=== PATIENT | female | born 1950 | race Caucasian/White ===

== ENCOUNTER → 2017-06-19 12:49 | Outpatient (CLI) | payer MEDICARE, SELFPAY ==
[2017-06-19 14:00] LABS: Absolute Lymphocyte Count 0.84 X10^3/ul (0.83-4.51); Absolute Neutrophil Count 3.8 X10^3/uL (2.0-7.7); Basophil# 0.03 X10^3/uL; Basophil% 0.5 % (0-1); Eosinophils% 1.8 % (0-5); Hemoglobin 11.1 g/dl (12.0-15.0); Lymphocyte # 0.84 X10^3/ul (4.0); Lymphocyte % 14.9 % (19-41); Mean Corp Hgb Conc 31.7 g/gl (32-36); Mean Corpuscular Volume 97.8 fL (81-99); Mean Platelet Vol. 10.7 fl (6.2-12.0); Monocyte# 0.88 X10^3/uL; Monocyte% 15.6 % (0-10); Neutrophil # 3.77 X10^3/uL (2.7-7.7); Platelet Count 150 K/mm3 (150-450); RBC Distribution Width CV 14.6 % (11.6-14.6); RBC Distribution Width SD 49.6 fl (35.1-43.9); Red Blood Count 3.58 M/mm3 (4.2-5.4); White Blood Count 5.6 K/mm3 (4.4-11.0)
[2017-06-19 14:02] LABS: POSITIVE COUNT NO; POSITIVE DIFFERENTIAL NO; POSITIVE MORPHOLOGY NO
[2017-06-19 14:17] LABS: Hemoglobin A1c 5.4 % (4.2-6.3)
== END ==
PROVIDERS: Family Provider Family Medicine; PCP Family Medicine; Visit Provider Physician Assistant
DX: M17.11 Unilateral primary osteoarthritis, right knee (principal); E11.9 Type 2 diabetes mellitus without complications
CPT/HCPCS: 36415; 83036; 85025

== ENCOUNTER 2017-07-25 05:15 | Inpatient (IN) | payer MEDICARE, SELFPAY ==
--- NOTE | 2017-07-10 11:10 | PCM.HP.BLA ---
History and Physical DATE OF SERVICE: 07/25/2017 SCHEDULED PROCEDURE: Right total knee arthroplasty with left knee cortisone injection HISTORY OF PRESENT ILLNESS: This is a 67-year-old female who is been having ongoing pain in bilateral knee is for the past 2 years. Patient states the right knee is worse than the left. Pain can reach as high as an 8 out of 10. Her pain is constant, aching, sharp, and stabbing. Pain is increased going up and down stairs, walking any amount of distance, sitting for extended periods of time, and driving. Rest is temporarily helpful. Patient has difficult time with activities of daily living including housework, shopping, and leisure activities. Patient denies previous surgery on the right knee. She has had previous cortisone injection with only 1-2 days of relief. She has tried ice heat and home exercises with no relief in symptoms. She has tried oral medications consisting of Celebrex which temporarily helps as well as occasional tramadol. Patient has also tried a brace in the past with no significant relief in symptoms. After failing conservative measures and discussing all treatment options with Dr. Lock, the patient would like to proceed with a right total knee arthroplasty with a corticosteroid injection into the left knee. Patient does have a medical history pertinent for hypertension, type 2 diabetes mellitus, asthma, acid reflex, and previous blood clot in the right lower extremity in 1998. Patient currently denies any chest pain, shortness of breath, fevers chills, recent infections. We are obtaining surgical clearance from patient's primary care physician Dr. Quinones. REVIEW OF SYSTEMS: ROS: Const: Reports change in appetite, but denies anorexia, anxiety, fever and weight change,hard of hearing, and vision problems. CV: Denies chest pain, heart murmur, irregular heartbeat and peripheral vascular disease. Resp: Reports asthma and cough, but denies pneumonia, sleep apnea, shortness of breath, tuberculosis and wheezing. GI: Reports diarrhea, but denies constipation, heartburn, nausea, bloody stools and vomiting, and difficulty swallowing. : . (F Genital Sx) Denies incontinence. Musculo: Denies leg swelling, trouble walking and weakness and limp. Skin: Reports history of shingles and tattoo, but denies Raynaud's. Neuro: Reports numbness/tingling but denies ambulatory dysfunction, dizziness and tremor. Psych: Reports stress, but denies anxiety, depression, insomnia and mental illness. Tee/Lymph: Denies anemia, bleeding/bruising tendency and past transfusion. Reviewed and updated. PAST MEDICAL HISTORY: Advance Care Plan: No Advance Directives Effective Date: 06/01/2017 PMH: Medical Problems: Arthritis, High Blood Pressure, Ulcers, Diabetes, Hypercholesterolemia, Macular Degeneration, Asthma, Allergies, Emphysema, Acid Reflux, Hernia, Cancer, Hard Of Hearing Blood clot in lower extremity - 1998 Accidents: None Surgical Hx: Carpal Tunnel - (07/17/2007) RT CTR, [facility] Carpal Tunnel - (08/21/2007) LT [facility] Hysterectomy - (2010) Anesthesia Complications: None Assistive Devices: Glasses, Dentures, Hearing Aid Reviewed and updated. SOCIAL HISTORY: SH: Marital: .Occupation: Retired.Work Status: Retired.Hand Dominance: Left-handed. Personal Habits: Cigarette Use: Former.Alcohol: Occasionally.Drug Use: Denies Use.Enjoy Exercising: Exercises 1-3 X/Week. Reviewed and updated. VITALS: Ht: 60 Wt: 211lb Wt k.710 BMI: 41.2 BP: 132/90 Pulse: 68 Resp: 16 T: 97.6 T: 36.4C ALLERGIES: No Known Drug Allergy MEDICATIONS: Celebrex 200 mg 1 by mouth every day, Verapamil Sustained Release 240 mg 1 po qdAY, Potassium Chloride 20 meq/packet 1 po qdAY, Metformin 1000 mg 1 po qdAY, Flonase 50 mcg/[place] 2 po qdAY PRN, Tramadol 50 mg prn, Calcium W/Vit D 1 po BID, Multivitamins 1 po qdAY, Ocuvite 1 PO bid, Iron 27 mg 1 po qdAY, Vitamin E 400 units 1 po qdAY, Vitamin C 500mg 1 po qdAY, Atenolol 50 mg 1 PO qdAY, Atorvastatin Calcium 40 mg 1 by mouth every day, Losartan Potassium/Hydrochlorothiazide 100-25 mg 1 by mouth every day, Ventolin HFA 108 (90 Base) mcg/Act prn, Symbicort 160-4.5 mcg/Act 2 by mouth twice a day PRN, Montelukast Sodium 10 mg 1 by mouth every day, Docusate Sodium 100 mg 1 by mouth twice a day as needed, Glucosamine Chondroitin 1500 Complex 1500 Com 1po qday, Fish Oil 1000 mg 1 a day, Apple Cider Vinegar 500 mg 2po qday, Omeprazole 20 mg 1po bid PRE-OP EXAM: General appearance:NORMAL Other: Eyes: Conjunctivae and lids: NORMAL Pupils: ERR Ears, Nose, Mouth, and Throat: NORMAL Other: Inspection of lips, teeth and gums: NORMAL Other: Neck: Examination of neck: no masses noted. Respiratory: Assessment of respiratory effort: NORMAL Other: Ausculation of lungs: clear to ausculation no wheeses, ronchi or rales. Cardiovascular: Ausculation of heart: regular rate and rhythem, no mummurs, gallops or rubs. Exam of carotid arteries: NORMAL Other: Gastrointestinal: Exam of abdomen: soft, nontender, nondistended bowel sounds present. Lymphatic: Palpation of nodes in neck: NORMAL Other: Palpation of nodes in Axillae: NORMAL Other: Neurological: see below Psychiatric: Orientation to time, place and person: NORMAL Other: Mood and affect: NORMAL Other: PHYSICAL EXAMINATION: Patient does walk with an antalgic gait. Patient has a varus deformity of the right knee and left knee. Patient is tender to palpation on the right knee over the medial lateral joint line. Range of motion on the right knee is +5? of extension to 95? of flexion. Left knee is +3? of extension to 110? of flexion. Patient does get positive crepitus bilaterally. Sensations intact light touch. IMAGING STUDIES: X-rays were obtained at [facility] [place] on June 01, 2017 of bilateral knees which does reveal varus alignment and medial joint space narrowing, subchondral sclerosis, and osteophyte formation consistent with severe osteoarthritis. Patient's right knee is most severe in the patellofemoral compartment and most severe in the medial compartment on the left knee. IMPRESSION: 1. Severe right knee osteoarthritis with varus alignment 2. Severe left knee osteoarthritis with varus alignment 3. Hypertension 4. Type 2 diabetes mellitus 5. Hypercholesterolemia 6. Asthma 7. Acid reflux 8. History of ulcers 9. Emphysema 10. Macular degeneration 11. History of endometrial cancer 12. History of previous blood clot in 1998 right lower extremity PLAN: Dr. Lock did discuss and review with the patient all treatment options including surgical versus nonsurgical. Patient wishes to proceed with above-stated procedure. Potential risks, benefits, and complications of this procedure were discussed in detail including but not limited to , infection, nerve and blood vessel damage, persistent pain, numbness, tingling, paresthesias, blood clot, pulmonary embolism, and requirement for further surgery. The patient expressed full understanding has no further questions for the doctor. Patient does agree to proceed with the above-stated procedure and has signed the surgery consent form. ___ I have re-examined the patient. There are no clinical changes since date of exam. ___ See progress notes for changes. ___ Dictated on admission Date: Time: Signature:
--- NOTE | 2017-07-10 11:19 | HP.PCM_ITS ---
History and Physical DATE OF SERVICE: 07/25/2017 SCHEDULED PROCEDURE: Right total knee arthroplasty with left knee cortisone injection HISTORY OF PRESENT ILLNESS: This is a 67-year-old female who is been having ongoing pain in bilateral knee is for the past 2 years. Patient states the right knee is worse than the left. Pain can reach as high as an 8 out of 10. Her pain is constant, aching, sharp , and stabbing. Pain is increased going up and down stairs, walking any amount of distance, sitting for extended periods of time, and driving. Rest is temporarily helpful. Patient has difficult time with activities of daily living including housework, shopping, and leisure activities. Patient denies previous surgery on the right knee. She has had previous cortisone injection with only 1-2 days of relief. She has tried ice heat and home exercises with no relief in symptoms. She has tried oral medications consisting of Celebrex which temporarily helps as well as occasional tramadol. Patient has also tried a brace in the past with no significant relief in symptoms. After failing conservative measures and discussing all treatment options with Dr. Lock, the patient would like to proceed with a right total knee arthroplasty with a corticosteroid injection into the left knee. Patient does have a medical history pertinent for hypertension, type 2 diabetes mellitus, asthma, acid reflex, and previous blood clot in the right lower extremity in 1998. Patient currently denies any chest pain, shortness of breath, fevers chills, recent infections. We are obtaining surgical clearance from patient's primary care physician Dr. Quinones. REVIEW OF SYSTEMS: ROS: Const: Reports change in appetite, but denies anorexia, anxiety, fever and weight change,hard of hearing, and vision problems. CV: Denies chest pain, heart murmur, irregular heartbeat and peripheral vascular disease. Resp: Reports asthma and cough, but denies pneumonia, sleep apnea, shortness of breath, tuberculosis and wheezing. GI: Reports diarrhea, but denies constipation, heartburn, nausea, bloody stools and vomiting, and difficulty swallowing. : . (F Genital Sx) Denies incontinence. Musculo: Denies leg swelling, trouble walking and weakness and limp. Skin: Reports history of shingles and tattoo, but denies Raynaud's. Neuro: Reports numbness/tingling but denies ambulatory dysfunction, dizziness and tremor. Psych: Reports stress, but denies anxiety, depression, insomnia and mental illness. Tee/Lymph: Denies anemia, bleeding/bruising tendency and past transfusion. Reviewed and updated. PAST MEDICAL HISTORY: Advance Care Plan: No Advance Directives Effective Date: 06/01/2017 PMH: Medical Problems: Arthritis, High Blood Pressure, Ulcers, Diabetes, Hypercholesterolemia, Macular Degeneration, Asthma, Allergies, Emphysema, Acid Reflux, Hernia, Cancer, Hard Of Hearing Blood clot in lower extremity - 1998 Accidents: None Surgical Hx: Carpal Tunnel - (07/17/2007) RT CTR, [facility] Carpal Tunnel - (08/21/2007) LT CTR [facility] Hysterectomy - (2010) Anesthesia Complications: None Assistive Devices: Glasses, Dentures, Hearing Aid Reviewed and updated. SOCIAL HISTORY: SH: Marital: .Occupation: Retired.Work Status: Retired.Hand Dominance: Left- handed. Personal Habits: Cigarette Use: Former.Alcohol: Occasionally.Drug Use: Denies Use.Enjoy Exercising: Exercises 1-3 X/Week. Reviewed and updated. VITALS: Ht: 60 Wt: 211lb Wt k.710 BMI: 41.2 BP: 132/90 Pulse: 68 Resp: 16 T: 97.6 T: 36.4C ALLERGIES: No Known Drug Allergy MEDICATIONS: Celebrex 200 mg 1 by mouth every day, Verapamil Sustained Release 240 mg 1 po qdAY, Potassium Chloride 20 meq/packet 1 po qdAY, Metformin 1000 mg 1 po qdAY, Flonase 50 mcg/[place] 2 po qdAY PRN, Tramadol 50 mg prn, Calcium W/Vit D 1 po BID, Multivitamins 1 po qdAY, Ocuvite 1 PO bid, Iron 27 mg 1 po qdAY, Vitamin E 400 units 1 po qdAY, Vitamin C 500mg 1 po qdAY, Atenolol 50 mg 1 PO qdAY, Atorvastatin Calcium 40 mg 1 by mouth every day, Losartan Potassium/ Hydrochlorothiazide 100-25 mg 1 by mouth every day, Ventolin HFA 108 (90 Base) mcg/Act prn, Symbicort 160-4.5 mcg/Act 2 by mouth twice a day PRN, Montelukast Sodium 10 mg 1 by mouth every day, Docusate Sodium 100 mg 1 by mouth twice a day as needed, Glucosamine Chondroitin 1500 Complex 1500 Com 1po qday, Fish Oil 1000 mg 1 a day, Apple Cider Vinegar 500 mg 2po qday, Omeprazole 20 mg 1po bid PRE-OP EXAM: General appearance:NORMAL Other: Eyes: Conjunctivae and lids: NORMAL Pupils: ERR Ears, Nose, Mouth, and Throat: NORMAL Other: Inspection of lips, teeth and gums: NORMAL Other: Neck: Examination of neck: no masses noted. Respiratory: Assessment of respiratory effort: NORMAL Other: Ausculation of lungs: clear to ausculation no wheeses, ronchi or rales. Cardiovascular: Ausculation of heart: regular rate and rhythem, no mummurs, gallops or rubs. Exam of carotid arteries: NORMAL Other: Gastrointestinal: Exam of abdomen: soft, nontender, nondistended bowel sounds present. Lymphatic: Palpation of nodes in neck: NORMAL Other: Palpation of nodes in Axillae: NORMAL Other: Neurological: see below Psychiatric: Orientation to time, place and person: NORMAL Other: Mood and affect: NORMAL Other: PHYSICAL EXAMINATION: Patient does walk with an antalgic gait. Patient has a varus deformity of the right knee and left knee. Patient is tender to palpation on the right knee over the medial lateral joint line. Range of motion on the right knee is +5? of extension to 95? of flexion. Left knee is +3? of extension to 110? of flexion. Patient does get positive crepitus bilaterally. Sensations intact light touch. IMAGING STUDIES: X-rays were obtained at [facility] [place] on June 01, 2017 of bilateral knees which does reveal varus alignment and medial joint space narrowing, subchondral sclerosis, and osteophyte formation consistent with severe osteoarthritis. Patient's right knee is most severe in the patellofemoral compartment and most severe in the medial compartment on the left knee. IMPRESSION: 1. Severe right knee osteoarthritis with varus alignment 2. Severe left knee osteoarthritis with varus alignment 3. Hypertension 4. Type 2 diabetes mellitus 5. Hypercholesterolemia 6. Asthma 7. Acid reflux 8. History of ulcers 9. Emphysema 10. Macular degeneration 11. History of endometrial cancer 12. History of previous blood clot in 1998 right lower extremity PLAN: Dr. Lock did discuss and review with the patient all treatment options including surgical versus nonsurgical. Patient wishes to proceed with above- stated procedure. Potential risks, benefits, and complications of this procedure were discussed in detail including but not limited to , infection , nerve and blood vessel damage, persistent pain, numbness, tingling, paresthesias, blood clot, pulmonary embolism, and requirement for further surgery. The patient expressed full understanding has no further questions for the doctor. Patient does agree to proceed with the above-stated procedure and has signed the surgery consent form. ___ I have re-examined the patient. There are no clinical changes since date of exam. ___ See progress notes for changes. ___ Dictated on admission Date: Time: Signature:
[2017-07-10 13:16] VITALS: BP 121/68; PULSE 65; RESP 16; TEMP 36.7; O2SAT 95; BMI 41.2
--- NOTE | 2017-07-10 13:38 | SDCEKG_ITS ---
Test Reason : Blood Pressure : / mmHG Vent. Rate : 061 BPM Atrial Rate : 061 BPM P-R Int : 174 ms QRS Dur : 136 ms QT Int : 456 ms P-R-T Axes : 047 077 024 degrees QTc Int : 459 ms Normal sinus rhythm Right bundle branch block Abnormal ECG Confirmed by CHINO ZURITA, ARNALDO ([id number]), department editor CATE ADHIKARI ([id number] on 07/12/2017 2:33:31 PM Referred By: BERNADETTE WID Confirmed By:ARNALDO MAGANA MD
[2017-07-10 14:44] LABS: Anion Gap 5 (5-15); BUN 28 mg/dL (7-18); BUN/Creat Ratio 24.1 RATIO (10-20); Calcium,Total 8.8 mg/dL (8.5-10.1); Chloride 108 mmol/L (98-107); Creatinine, Serum 1.16 mg/dL (0.55-1.02); EST Glomerular Filtration Rate 50 mL/min (>60); Est Glom Filt Rate - Afr Amer 60 mL/min (>60); Glucose 110 mg/dL (74-106); Potassium 3.9 mmol/L (3.5-5.1); Sodium Level 142 mmol/L (136-145)
--- NOTE | 2017-07-20 15:17 | CASEMGMT ---
ELLEN WYNNE called and spoke with patient regarding discharge needs after upcoming surgery. Patient states that she will be staying with her sister's house and is borrowing her bother in laws walker. ELLEN WYNNE requested that patient bring walker with her when she comes to surgery. Patient state that her sister has toilet riser and shower chair at their house. Patient states that she is setup with [facility] for outpatient therapy and that her sister or other family and friends will be providing transportation. ELLEN WYNNE will follow up with patient after surgery and will assist with discharge needs.
[2017-07-25] VITALS (13 sets, daily range): BP systolic 115–163; BP diastolic 50–87; PULSE 48–75; RESP 15–18; TEMP 36–37.1; O2SAT 92–99; BMI 41.2
[2017-07-25] MEDS: Celecoxib 200 MG Capsule 400 MG PO (06:03)
[2017-07-25] MEDS: oxyCODONE HCl Cr 10 MG Tablet PO (06:03)
[2017-07-25] MEDS: Acetaminophen 500 MG Tablet 1000 MG PO ×3 (06:03→21:40)
[2017-07-25 06:16] LABS: Bedside Glucose 104 mg/dL (70-110)
[2017-07-25] MEDS: Scopolamine 1mg/72hr Patch 1 PATCH TD (07:00)
[2017-07-25] MEDS: Cefazolin 2 GM in 0.9% Normal Saline 100 ML IV (07:09)
[2017-07-25] MEDS: Triamcinolone Acetonide 40 MG/ML Vial (07:17)
[2017-07-25] MEDS: Lactated Ringers 1,000 ML 999 ML IV (08:55)
--- NOTE | 2017-07-25 08:56 | PCM.OPRPT ---
Report of Operation Date of Procedure: 07/25/17 Pre-Operative Diagnosis: 1. Right knee primary osteoarthritis. 2. Left knee primary osteoarthritis Post-Operative Diagnosis: 1. Right knee primary osteoarthritis. 2. Left knee primary osteoarthritis Surgery/Procedure Performed:: 1. Right total knee replacement. 2. Left knee cortical steroid injection Description of Surgical Findings:: stAble knee with equal leg lengths, left knee was injected with a roll suprapatellar pouch portal teacher drama: Mauro Campbell Type of Anesthesia:: Spinal Anesthesiologist: Jason Pierre Special Medications: 2 g Ancef, 1 g TXA at incision, 1 g TXA closure, 10 mg Decadron, joint cocktail (5 mg Duramorph, 30 mL of 0.5% Ropivicaine, 1000 units of epinephrine, 30 mg of Toradol) Specimen's removed: Bony cuts Estimated Blood Loss (mL): 25 Fluids Replaced: 1400 ml Crystalloid Description of Procedure: Implants used: 1. Toño size 3 triathlon cruciate retaining distal femoral component 2. Girard size 3 universal tibial baseplate 3. Girard X3 9 mm CS polyethylene 4. Girard X3 29 mm asymmetric patella Brief history operative indications: 67-year-old f with history of right knee osteoarthritis with radiographic findings with loss of joint space, osteophyte formation and subchondral sclerosis. Failed conservative measures as mentioned in the H&P. Discussion of total knee arthroplasty as well as risk and benefits were discussed the patient including but not limited to blood loss, DVTs, PEs, neurovascular damage, general risk of anesthesia including loss of life, and stiffness or instability were discussed with patient. Patient demonstrated understanding and was able to sign informed consent. Procedure: On the date of procedure patient's right and left lower extremity was marked in the preoperative area. The patient was then taken back to the operating room where the patient was placed on the table in the supine position. All bony prominences were identified a well-padded. Anesthesia assumed control of the C-spine and airway and remained controlled throughout the remainder of the procedure. Timeout was called for the left knee injection and left knee was verified. Left knee suprapatellar lateral portal was prepped in a sterile fashion using alcohol. 2 mL of Kenalog and 8 mL of 1% lidocaine were drawn up into a syringe. Medication was injected through this portal and sterile conditions. A tourniquet was placed on the right upper thigh and the leg was prepped in a sterile fashion. The surgeon then scrubbed at this time. Upon reentering the room the right lower extremity was draped in a standard orthopedic fashion. A timeout was then called and everyone agreed upon the side, the site, the procedure to be performed, patient's identity and antibiotics given. Esmarch bandage was used to exsanguinate the extremity and the tourniquet was placed up to 250 mmHg with the knee in flexion. A midline skin incision was made and sharp dissection was taken down through skin subcutaneous tissue and fat. The standard medial parapatellar incision was made and the patella was subluxed laterally. The standard deep MCL release was done and the fat pad was resected. Next our attention was directed to the femur. Navigation pins were placed, navigation was registered. The distal femoral cutting block was pinned into place and 8 mm of distal femur resection was completed. The distal femoral cut was verified with navigation. The knee was then placed in deep flexion in the standard Bills Khakis sizing guide was used to place the femoral component in 3? external rotation based on the posterior condyles. A size 3 4-in-1 cutting block was selected and pinned into place. The anterior cut was then made and checked for notching. The subsequent anterior chamfer cuts, posterior condylar cuts and posterior chamfer cuts were made while ensuring the MCL and LCL were protected. Our attention was then turned to the tibia where the navigation pins were placed, navigation was registered. Mirimus tibial cutting guide was used to make the appropriate tibial cut 90 degrees from the mechanical axis. Navigation was then used to verify the cut. A size 3 tibial base plate was selected. the knee was flexed to 90 degrees and the soft tissues and posterior osteophytes were removed from the joint. 40 cc of the periarticular injection was injected into the posterior medial corner of the joint. The appropriate trials were then placed on the femur and tibia. A trial polyethylene was trialed to ensure proper balancing and stability of the knee. Patella tracking, was then verified and corrected appropriately as needed. The appropriate tibial internal rotation was then marked with a bovie. Our attention was then directed to the patella. The patella was everted and a flat resection was made. The lug holes were drilled and the patella trial was placed. Patellar tracking was checked and deemed appropriate. Once we were happy lug holes were drilled for the femur and trial components were removed. the tibia was subluxed and pinned into place and the keel was punched and the canal was reamed. Final components were verified and opened, and cement was mixed in a vacuum. Toño Simplex cement was used. The wound was copiously irrigated with normal saline. When the cement was ready the components were cemented into place starting with the tibia, femur and finally the patella. The trial poly component was placed and the knee was placed in full extension. All excess cement was removed in the process. Once the cement had cured the tracking, alignment and balance were verified and a size 9 mm polyethylene component was placed. Once the final components were placed the wound was copiously irrigated with normal saline solution and the periarticular injection was given. The wound was closed in a layer rinaldi fashion using #1 vicryl interrupted sutures for the arthrotomy, 2-0 interrupted Vicryl suture for the subcuticular layer and daryl for final skin closure. A sterile compressive dressing was then placed. The patient was then awakened from anesthesia, transferred to the [place] and transferred to the PACU for recovery. Post op plan DVT ppx: Xarelto due to previous DVT, thigh high compression stockings Follow up: in office in 2 weeks for wound check PT: to start POD #0 at hospital, outpatient PT should be arranged. My physician certified first assistant was a vital part of this case. He was important in appropriate retraction during the case, and protection of soft tissues during bony cuts. His intimate knowledge of the case and my steps aided in safe and expedient completion of the procedure as well as appropriate position of the leg during the case. He was also vital in assisting with closure under my direct supervision. Grafts/Implants Used: Toño triathlon total knee - Complications None - Admit VTE Documentation VTE Present on Admission: No VTE Mechan Device Prophylaxis: SCD's, Thigh High NEMO Hose VTE Pharm Prophylaxis ordered?: Yes
--- NOTE | 2017-07-25 09:01 | OP.PCM_ITS ---
Report of Operation Date of Procedure: 07/25/17 Pre-Operative Diagnosis: 1. Right knee primary osteoarthritis. 2. Left knee primary osteoarthritis Post-Operative Diagnosis: 1. Right knee primary osteoarthritis. 2. Left knee primary osteoarthritis Surgery/Procedure Performed:: 1. Right total knee replacement. 2. Left knee cortical steroid injection Description of Surgical Findings:: stAble knee with equal leg lengths, left knee was injected with a roll suprapatellar pouch portal director wholesale: Mauro Campbell Type of Anesthesia:: Spinal Anesthesiologist: Jason Pierre Special Medications: 2 g Ancef, 1 g TXA at incision, 1 g TXA closure, 10 mg Decadron, joint cocktail (5 mg Duramorph, 30 mL of 0.5% Ropivicaine, 1000 units of epinephrine, 30 mg of Toradol) Specimen's removed: Bony cuts Estimated Blood Loss (mL): 25 Fluids Replaced: 1400 ml Crystalloid Description of Procedure: Implants used: 1. Toño size 3 triathlon cruciate retaining distal femoral component 2. [place] size 3 universal tibial baseplate 3. [place] X3 9 mm CS polyethylene 4. [place] X3 29 mm asymmetric patella Brief history operative indications: 67-year-old f with history of right knee osteoarthritis with radiographic findings with loss of joint space, osteophyte formation and subchondral sclerosis. Failed conservative measures as mentioned in the H&P. Discussion of total knee arthroplasty as well as risk and benefits were discussed the patient including but not limited to blood loss, DVTs, PEs, neurovascular damage , general risk of anesthesia including loss of life, and stiffness or instability were discussed with patient. Patient demonstrated understanding and was able to sign informed consent. Procedure: On the date of procedure patient's right and left lower extremity was marked in the preoperative area. The patient was then taken back to the operating room where the patient was placed on the table in the supine position. All bony prominences were identified a well-padded. Anesthesia assumed control of the C- spine and airway and remained controlled throughout the remainder of the procedure. Timeout was called for the left knee injection and left knee was verified. Left knee suprapatellar lateral portal was prepped in a sterile fashion using alcohol. 2 mL of Kenalog and 8 mL of 1% lidocaine were drawn up into a syringe. Medication was injected through this portal and sterile conditions. A tourniquet was placed on the right upper thigh and the leg was prepped in a sterile fashion. The surgeon then scrubbed at this time. Upon reentering the room the right lower extremity was draped in a standard orthopedic fashion. A timeout was then called and everyone agreed upon the side , the site, the procedure to be performed, patient's identity and antibiotics given. Esmarch bandage was used to exsanguinate the extremity and the tourniquet was placed up to 250 mmHg with the knee in flexion. A midline skin incision was made and sharp dissection was taken down through skin subcutaneous tissue and fat. The standard medial parapatellar incision was made and the patella was subluxed laterally. The standard deep MCL release was done and the fat pad was resected. Next our attention was directed to the femur. Navigation pins were placed, navigation was registered. The distal femoral cutting block was pinned into place and 8 mm of distal femur resection was completed. The distal femoral cut was verified with navigation. The knee was then placed in deep flexion in the standard [employer] sizing guide was used to place the femoral component in 3? external rotation based on the posterior condyles. A size 3 4-in-1 cutting block was selected and pinned into place. The anterior cut was then made and checked for notching. The subsequent anterior chamfer cuts, posterior condylar cuts and posterior chamfer cuts were made while ensuring the MCL and LCL were protected. Our attention was then turned to the tibia where the navigation pins were placed , navigation was registered. [employer] (Astilbe) tibial cutting guide was used to make the appropriate tibial cut 90 degrees from the mechanical axis. Navigation was then used to verify the cut. A size 3 tibial base plate was selected. the knee was flexed to 90 degrees and the soft tissues and posterior osteophytes were removed from the joint. 40 cc of the periarticular injection was injected into the posterior medial corner of the joint. The appropriate trials were then placed on the femur and tibia. A trial polyethylene was trialed to ensure proper balancing and stability of the knee. Patella tracking, was then verified and corrected appropriately as needed. The appropriate tibial internal rotation was then marked with a bovie. Our attention was then directed to the patella. The patella was everted and a flat resection was made. The lug holes were drilled and the patella trial was placed. Patellar tracking was checked and deemed appropriate. Once we were happy lug holes were drilled for the femur and trial components were removed. the tibia was subluxed and pinned into place and the keel was punched and the canal was reamed. Final components were verified and opened, and cement was mixed in a vacuum. [place] Simplex cement was used. The wound was copiously irrigated with normal saline. When the cement was ready the components were cemented into place starting with the tibia, femur and finally the patella. The trial poly component was placed and the knee was placed in full extension. All excess cement was removed in the process. Once the cement had cured the tracking, alignment and balance were verified and a size 9 mm polyethylene component was placed. Once the final components were placed the wound was copiously irrigated with normal saline solution and the periarticular injection was given. The wound was closed in a layer rinaldi fashion using #1 vicryl interrupted sutures for the arthrotomy, 2-0 interrupted Vicryl suture for the subcuticular layer and daryl for final skin closure. A sterile compressive dressing was then placed. The patient was then awakened from anesthesia, transferred to the rfords branch and transferred to the PACU for recovery. Post op plan DVT ppx: Xarelto due to previous DVT, thigh high compression stockings Follow up: in office in 2 weeks for wound check PT: to start POD #0 at hospital, outpatient PT should be arranged. My physician seed analysis laboratory assistant was a vital part of this case. He was important in appropriate retraction during the case, and protection of soft tissues during bony cuts. His intimate knowledge of the case and my steps aided in safe and expedient completion of the procedure as well as appropriate position of the leg during the case. He was also vital in assisting with closure under my direct supervision. Grafts/Implants Used: Toño triathlon total knee - Complications None - Admit VTE Documentation VTE Present on Admission: No VTE Mechan Device Prophylaxis: SCD's, Thigh High NEMO Hose VTE Pharm Prophylaxis ordered?: Yes
--- NOTE | 2017-07-25 09:25 | RAD_ITS ---
STUDY: X-RAY - RIGHT KNEE REASON FOR EXAM: Female, 67 years old. Total knee replacement. TECHNIQUE: AP and lateral view(s) of the knee. COMPARISON: Comparison is made with prior examination dated July 14, 2014. FINDINGS: Normal visualized distal femur. Normal visualized proximal tibia and fibula. Normal proximal tibiofibular articulation. The patient is status post total knee replacement. There is good alignment. Postoperative soft tissue changes. RAD/Knee 1 or 2 Views IMPRESSION: Total knee replacement. There is good alignment. Postoperative soft tissue changes. Electronically Signed: Kostas Finney MD at 12:51 EDT Tel [phone], Service support ,
[2017-07-25] MEDS: Lactated Ringers 1,000 ML 125 ML IV ×2 (10:27→15:31)
[2017-07-25 10:30] LABS: Bedside Glucose 119 mg/dL (70-110)
[2017-07-25 12:40] LABS: Bedside Glucose 113 mg/dL (70-110)
[2017-07-25] MEDS: Senna/Docusate Sodium 1 Tablet 2 TABLET PO ×2 (13:44→21:40)
[2017-07-25] MEDS: Pantoprazole Sodium 20 MG Tablet PO ×2 (13:45→21:40)
[2017-07-25] MEDS: Albuterol 2.5 MG/3 ML VIAL.NEB. INHALATION ×2 (13:52→18:52)
[2017-07-25] MEDS: Cefazolin 1 GM/50 ML BAG IV ×2 (16:01→23:11)
[2017-07-25] MEDS: Calcium Carb/Vitamin D 1 TABLET Tablet PO (17:41)
[2017-07-25 17:46] LABS: Bedside Glucose 98 mg/dL (70-110)
[2017-07-25] MEDS: Budesonide Respules 0.5 MG/2 ML AMPUL.NEB. INHALATION (18:52)
--- NOTE | 2017-07-25 19:06 | PCM.CONS.B ---
Problem List (1) S/P total knee arthroplasty Status: Acute Qualifiers: Laterality: right Qualified Code(s): Z96.651 - Presence of right artificial knee joint Comment: Dr. 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 Lock Pt was seen and examined post operatively. She is afebrile and the BP is good. She is 96-98% saturated on RA. She is mildly bradycardic. She is on both Metoprolol and Verapimil. She was + for MSSA on the nasal swab and has received Ancef pre-op and this is continued post-op. She is on Eliquis 2.5 mg BID for DVT prophylaxis. she had a DVT in 1998 and it was unprovoked. She was on Coumadin for a year. Denies CP, SOB, palpitations, lightheadedness. No hx of AF, HI, CHF, sleep apnea. She has never had a stress test. FH is + for endometrial CA in her mother. She lives alone and she quit smoking many years ago. She has no children. She does not abuse ETOH. Alert and oriented X3, NAD. Denies any pain at the present time Carotids -brisk upstroke with good pulse volume, no carotid bruits, no jugular vein distention, no thyromegaly Mucous membranes are dry Lungs-diminished but clear to auscultation throughout after a few deep breaths. She initially had coarse crackles in the bases but this completely resolved with a few deep breaths. Heart-distant heart sounds, likely secondary to body habitus. No murmurs appreciated and she has no gallop and no rub. Abdomen-obese, soft, nontender, normal bowel sounds present Trace pretibial pitting edema bilaterally, intact sensation in both feet, no calf tenderness No clubbing, no cyanosis No focal neurologic deficits Skin-no rash no breakdown She plans on going to her sister's house to recover...she will have a few steps to go up Impressions 1. S/P R TKA 07/25/17 2. HTN 3. DM II - excellent control.....HGBA1C was 5.4% in June. Monitor the blood sugars QID while in the hospital and will add a Sliding scale 4. Dyslipidemia - lipid panel less than 1 year ago was good and the LDL was 67 5. morbid obesity 6. hx of stage I endometrial CA - S/P CAROL with BSO in 2010 7. Remote history of an unprovoked DVT - Agree with using Eliquis for DVT prophylaxis. I would recommend continuing the Eliquis for 4-6 weeks post op given the hx of the unprovoked DVT in 1998 and the Hx of endometrial CA. 8. Stage III CRF - would advise follow up with a personal property assessor going forward to help preserve the kidney function. Avoid Nephrotoxins. Would avoid NSAID's fdc as this can worsen kidney function. Continue the ARB 9. RBBB - would consider a Nuclear Stress test in the future. She has several risk factors for CAD including DM II, former smoking hx, HLD, HTN, Age > 55, obesity. She has a RBBB which can mask ischemic changes Will recheck BMP and CBC in the AM. Thank you for your trust in allowing the hospitalist service to participate in the medical management of your pt's with Chronic medical conditions. Will follow along while she is in the hospital. - Reason for Consult medical management of chronic medical conditions post-op R TKA Code Visit Inpatient E&M: 59322 Subs Hosp L3
--- NOTE | 2017-07-25 19:18 | CON.PCM_ITS ---
Problem List (1) S/P total knee arthroplasty Status: Acute Qualifiers: Laterality: right Qualified Code(s): Z96.651 - Presence of right artificial knee joint Comment: Dr. 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 Lock Pt was seen and examined post operatively. She is afebrile and the BP is good. She is 96-98% saturated on RA. She is mildly bradycardic. She is on both Metoprolol and Verapimil. She was + for MSSA on the nasal swab and has received Ancef pre-op and this is continued post-op. She is on Eliquis 2.5 mg BID for DVT prophylaxis. she had a DVT in 1998 and it was unprovoked. She was on Coumadin for a year. Denies CP, SOB, palpitations, lightheadedness. No hx of AF, AR, CHF, sleep apnea. She has never had a stress test. FH is + for endometrial CA in her mother. She lives alone and she quit smoking many years ago. She has no children. She does not abuse ETOH. Alert and oriented X3, NAD. Denies any pain at the present time Carotids -brisk upstroke with good pulse volume, no carotid bruits, no jugular vein distention, no thyromegaly Mucous membranes are dry Lungs-diminished but clear to auscultation throughout after a few deep breaths. She initially had coarse crackles in the bases but this completely resolved with a few deep breaths. Heart-distant heart sounds, likely secondary to body habitus. No murmurs appreciated and she has no gallop and no rub. Abdomen-obese, soft, nontender, normal bowel sounds present Trace pretibial pitting edema bilaterally, intact sensation in both feet, no calf tenderness No clubbing, no cyanosis No focal neurologic deficits Skin-no rash no breakdown She plans on going to her sister's house to recover...she will have a few steps to go up Impressions 1. S/P R TKA 07/25/17 2. HTN 3. DM II - excellent control.....HGBA1C was 5.4% in June. Monitor the blood sugars QID while in the hospital and will add a Sliding scale 4. Dyslipidemia - lipid panel less than 1 year ago was good and the LDL was 67 5. morbid obesity 6. hx of stage I endometrial CA - S/P CAROL with BSO in 2010 7. Remote history of an unprovoked DVT - Agree with using Eliquis for DVT prophylaxis. I would recommend continuing the Eliquis for 4-6 weeks post op given the hx of the unprovoked DVT in 1998 and the Hx of endometrial CA. 8. Stage III CRF - would advise follow up with a manager of operations going forward to help preserve the kidney function. Avoid Nephrotoxins. Would avoid NSAID's retirement as this can worsen kidney function. Continue the ARB 9. RBBB - would consider a Nuclear Stress test in the future. She has several risk factors for CAD including DM II, former smoking hx, HLD, HTN, Age > 55, obesity. She has a RBBB which can mask ischemic changes Will recheck BMP and CBC in the AM. Thank you for your trust in allowing the hospitalist service to participate in the medical management of your pt's with Chronic medical conditions. Will follow along while she is in the hospital. - Reason for Consult medical management of chronic medical conditions post-op R TKA Code Visit Inpatient E&M: 32974 Subs Hosp L3
[2017-07-25] MEDS: Verapamil SR 240 MG Tablet PO (21:38)
[2017-07-25] MEDS: Atorvastatin Calcium 40 MG Tablet PO (21:39)
[2017-07-25] MEDS: APIXABAN 2.5 MG TABLET PO (21:39)
[2017-07-25] MEDS: Montelukast 10 MG Tablet PO (21:40)
[2017-07-25 21:45] LABS: Bedside Glucose 134 mg/dL (70-110)
[2017-07-26] VITALS (9 sets, daily range): BP systolic 103–163; BP diastolic 46–60; PULSE 57–67; RESP 16–18; TEMP 36.7–37.2; O2SAT 95–98
--- NOTE | 2017-07-26 05:55 | EKG12_ITS ---
Test Reason : AM EKG Blood Pressure : / mmHG Vent. Rate : 060 BPM Atrial Rate : 060 BPM P-R Int : 180 ms QRS Dur : 126 ms QT Int : 446 ms P-R-T Axes : 033 068 021 degrees QTc Int : 446 ms Sinus rhythm with Premature supraventricular complexes Right bundle branch block Abnormal ECG When compared with ECG of 10-JUL-2017 13:50, Premature supraventricular complexes are now Present Confirmed by CHINO ZURITA, ARNALDO ([id number]), editor index CATE ADHIKARI ([id number]) on 08/04/2017 2:52:59 PM Referred By: Confirmed By:ARNALDO MAGANA MD
[2017-07-26] MEDS: Acetaminophen 500 MG Tablet 1000 MG PO ×3 (06:06→21:37)
[2017-07-26] MEDS: oxyCODONE 5 MG Tablet PO ×4 (06:09→18:32)
[2017-07-26 06:12] LABS: Hematocrit 32.7 % (37-47); Hemoglobin 10.2 g/dl (12.0-15.0); Mean Corp Hgb Conc 31.2 g/gl (32-36); Mean Corpuscular Hgb 30.4 pg (27.0-32.0); Mean Corpuscular Volume 97.6 fL (81-99); Mean Platelet Vol. 10.3 fl (6.2-12.0); Platelet Count 149 K/mm3 (150-450); RBC Distribution Width CV 14.5 % (11.6-14.6); RBC Distribution Width SD 48.8 fl (35.1-43.9); Red Blood Count 3.35 M/mm3 (4.2-5.4)
[2017-07-26 06:15] LABS: Scan Indicated on CBC? Y/N NO
[2017-07-26 06:21] LABS: Anion Gap 7 (5-15); BUN 18 mg/dL (7-18); BUN/Creat Ratio 18.7 RATIO (10-20); Calcium,Total 8.2 mg/dL (8.5-10.1); Chloride 109 mmol/L (98-107); Creatinine, Serum 0.96 mg/dL (0.55-1.02); EST Glomerular Filtration Rate 62 mL/min (>60); Est Glom Filt Rate - Afr Amer 74 mL/min (>60); Estimated Creatinine Clearance 40.85 ml/min; Glucose 97 mg/dL (74-106); Magnesium 1.9 mg/dL (1.6-2.6); Potassium 4.4 mmol/L (3.5-5.1); Sodium Level 144 mmol/L (136-145)
[2017-07-26 06:36] LABS: Bedside Glucose 104 mg/dL (70-110)
[2017-07-26] MEDS: Budesonide Respules 0.5 MG/2 ML AMPUL.NEB. INHALATION (06:52)
[2017-07-26] MEDS: Albuterol 2.5 MG/3 ML VIAL.NEB. INHALATION ×2 (06:52→19:30)
--- NOTE | 2017-07-26 07:00 | PN.ORTHO_ITS ---
Patient Problems: Active and Suspected Problems S/P total knee arthroplasty (Acute) Dr. Lock 07/25/17 Endometrial cancer (Acute) Subjective: The patient was sitting in bed side chair upon examination. Patient denies any chest pain, shortness of breath, dizziness, lightheadedness, nausea or vomiting , or calf pain. Patient states she did require pain medications this morning. She feels the block is wearing off. No adverse overnight events. Objective: Vital signs stable and afebrile. Patient is able to plantarflex and dorsiflex actively. Sensation is intact to light touch to saphenous, sural, superficial and deep peroneal, and tibial distribution. Dressing is clean dry and intact. Negative Homans bilaterally, negative signs and symptoms of DVT. - Physical Exam General: Alert, Oriented x3, Cooperative, No apparent distress Vital Signs Temp Pulse Resp BP Pulse Ox 98.5 F 57 L 18 103/53 L 96 07/26/17 03:25 07/26/17 03:25 07/26/17 03:25 07/26/17 03:25 07/26/17 03:25 Oxygen Delivery Method Room Air Weight: 95.708 kg Body Mass Index (BMI) 41.2 Finger Stick Blood Glucose 119 Intake and Output for Last 24 Hours 07/24/17 07/25/17 07/26/17 23:59 23:59 23:59 Intake Total 2810 / 2810 1764 / 1764 Output Total 900 / 900 Balance 1909 / 191 1764 / 1764 Laboratory Tests Past 24 Hrs 07/26/17 07/26/17 05:40 05:40 WBC 8.0 RBC 3.35 L Hgb 10.2 L Hct 32.7 L MCV 97.6 MCH 30.4 MCHC 31.2 L RDW 14.5 RDW Differential 48.8 H Plt Count 149 L MPV 10.3 Sodium 144 Potassium 4.4 Chloride 109 H Carbon Dioxide 28.0 Anion Gap 7 BUN 18 Creatinine 0.96 Estim Creat Clear Calc 40.85 Est GFR (MDRD) Af Amer 74 Est GFR (MDRD) Non-Af 62 BUN/Creatinine Ratio 18.7 Glucose 97 Calcium 8.2 L Magnesium 1.9 POC Glucose 07/26/17 07/25/17 07/25/17 06:33 21:38 17:37 POC Glucose 104 134 H 98 07/25/17 07/25/17 11:21 10:19 POC Glucose 113 H 119 H Assessment/Plan Active and Suspected Problems S/P total knee arthroplasty (Acute) Dr. Lock 07/25/17 Endometrial cancer (Acute) 1. S/P right total knee arthroplasty and corticosteroid injection left knee POD #1 2. Continue Pain Medications: Tylenol and OxyIR 3. DVT Prophylaxis: Eliquis 4. PT/OT: Weightbearing as tolerated 5. H & H: 10.2/32.7, asymptomatic 6. Encouraged Incentive Spirometry 7. Continue postoperative medical management per medicine 8. Disposition: Plan will be for possible discharge home tomorrow if pain is controlled and patient tolerates physical therapy.
[2017-07-26] MEDS: Calcium Carb/Vitamin D 1 TABLET Tablet PO ×2 (08:28→17:45)
[2017-07-26] MEDS: Vitamin E 400 UNITS Capsule PO (08:29)
[2017-07-26] MEDS: Ascorbic Acid 500 MG Tablet PO (08:29)
[2017-07-26] MEDS: Multivitamins,Therapeutic Tablet 1 TABLET PO (08:29)
--- NOTE | 2017-07-26 09:15 | CASEMGMT ---
ELLEN WYNNE Face to Face with patient for initial transition planning/care coordination assessment. ELLEN WYNNE introduced self and role at [facility]. Patient sitting in chair, alert and oriented. Patient willing to participate in assessment and is able to answer all questions appropriately. Care providers, pharmacy, and demographics verified. See link attached. Patient wishes to discharge to sister's home and is setup with [facility] for outpatient therapy. Per therapy patient needs a FWW for at discharge. Pt states she has no further needs or concerns at this time. ELLEN WYNNE obtainded script for [facility] for FWW and will setup with [facility] for delivery. CM to follow for discharge planning needs that may arise. Disposition Plan: Patient to discharge home with outpatient therapy, family support, and follow-up plans in place.
--- NOTE | 2017-07-26 09:33 | PCA ---
pt in therapy
[2017-07-26] MEDS: Senna/Docusate Sodium 1 Tablet 2 TABLET PO ×2 (10:09→21:37)
[2017-07-26] MEDS: APIXABAN 2.5 MG TABLET PO ×2 (10:09→21:34)
[2017-07-26] MEDS: Glucerna Shake 120 ML LIQUID PO (10:09)
[2017-07-26] MEDS: Pantoprazole Sodium 20 MG Tablet PO ×2 (10:09→21:35)
[2017-07-26 11:30] LABS: Bedside Glucose 99 mg/dL (70-110)
--- NOTE | 2017-07-26 13:05 | PCA ---
pt in therapy
[2017-07-26] MEDS: Atenolol 50 MG Tablet PO (16:12)
[2017-07-26 16:56] LABS: Bedside Glucose 96 mg/dL (70-110)
--- NOTE | 2017-07-26 17:18 | PCM.PROGNOTE ---
Patient Problems: Active and Suspected Problems S/P total knee arthroplasty (Acute) Dr. Lock 07/25/17 Endometrial cancer (Acute) Subjective: Postoperative day #1 status post right TKA She is afebrile with stable vital signs. Pulse rate was in the high 40s and 50s since admission and atenolol was held but was given at 4 PM when the heart rate came up to 67. She is also on Verapimil 240 mg Q HS in addition to the Atenolol 50 mg. Her pressures are controlled. She is 98% saturated on room air. Blood cell count today is normal at 8.0. Platelets are mildly decreased at 149,000 and the hemoglobin is 10.2, down from 11.1 on June 19. BMP is unremarkable. The creatinine has come down to 0.96 from 1.16 with just some IV fluid. Magnesium is normal at 1.9. Blood sugars are under excellent control. She had some pain after the second therapy session today but, denies pain at the current time No SOB, No CP, no N/V/Abdominal pain, no lightheadedness - Physical Exam General: Alert, Oriented x3, Cooperative, No apparent distress Lungs: Clear to auscultation, Diminished Cardiovascular: Regular rate, Regular Rhythm, Normal S1, Normal S2, No Gallop Abdomen: Bowel Sounds Present, Soft, Non Tender, Non-Distended Extremities: No Calf Tenderness Skin: No rashes Neurological: Cranial nerves II-XII grossly intact, Neuro grossly intact Vital Signs Temp Pulse Resp BP Pulse Ox 98.9 F 67 18 131/56 H 98 07/26/17 16:00 07/26/17 16:00 07/26/17 16:00 07/26/17 16:00 07/26/17 16:00 Oxygen Delivery Method Room Air Weight: 211 lb Body Mass Index (BMI) 41.2 Finger Stick Blood Glucose 119 Intake and Output for Last 24 Hours 07/24/17 07/25/17 07/26/17 23:59 23:59 23:59 Intake Total 2810 / 2810 2464 / 2464 Output Total 900 / 900 600 / 600 Balance 1909 / 19094 / 186 Laboratory Tests Past 24 Hrs 07/26/17 07/26/17 05:40 05:40 WBC 8.0 RBC 3.35 L Hgb 10.2 L Hct 32.7 L MCV 97.6 MCH 30.4 MCHC 31.2 L RDW 14.5 RDW Differential 48.8 H Plt Count 149 L MPV 10.3 Sodium 144 Potassium 4.4 Chloride 109 H Carbon Dioxide 28.0 Anion Gap 7 BUN 18 Creatinine 0.96 Estim Creat Clear Calc 40.85 Est GFR (MDRD) Af Amer 74 Est GFR (MDRD) Non-Af 62 BUN/Creatinine Ratio 18.7 Glucose 97 Calcium 8.2 L Magnesium 1.9 POC Glucose 07/26/17 07/26/17 07/26/17 16:07 11:26 06:33 POC Glucose 96 99 104 07/25/17 07/25/17 21:38 17:37 POC Glucose 134 H 98 Assessment/Plan Active and Suspected Problems S/P total knee arthroplasty (Acute) Dr. Lock 07/25/17 Endometrial cancer (Acute) Impressions 1. S/P R TKA 07/25/17 - POD #1 2. HTN 3. DM II - excellent control.....HGBA1C was 5.4% in June. Monitor the blood sugars QID while in the hospital and will add a Sliding scale 4. Dyslipidemia - lipid panel less than 1 year ago was good and the LDL was 67 5. morbid obesity 6. hx of stage I endometrial CA - S/P CAROL with BSO in 2010 7. Remote history of an unprovoked DVT - Agree with using Eliquis for DVT prophylaxis. I would recommend continuing the Eliquis for 4-6 weeks post op given the hx of the unprovoked DVT in 1998 and the Hx of endometrial CA. 8. Stage II-III CRF - would advise follow up with a receiving lead going forward to help preserve the kidney function. Avoid Nephrotoxins. Would avoid NSAID's assisted as this can worsen kidney function. Continue the ARB 9. RBBB - would consider a Nuclear Stress test in the future. She has several risk factors for CAD including DM II, former smoking hx, HLD, HTN, Age > 55, obesity and there is a strong hx of CAD in the family. She has a RBBB which can mask ischemic changes 10. bradycardia She is on 2 negative chronotropic drugs....will DC the Verapamil and continue the Atenolol, [place] and DC the HCTZ If she needs an additional drug for BP will use Amlodipine Continue the Apixaban at [place]. Recheck lab in the AM Code Visit Inpatient E&M: 47738 Subs Hosp L2
--- NOTE | 2017-07-26 17:27 | PN_ITS ---
Patient Problems: Active and Suspected Problems S/P total knee arthroplasty (Acute) Dr. Lock 07/25/17 Endometrial cancer (Acute) Subjective: Postoperative day #1 status post right TKA She is afebrile with stable vital signs. Pulse rate was in the high 40s and 50s since admission and atenolol was held but was given at 4 PM when the heart rate came up to 67. She is also on Verapimil 240 mg Q HS in addition to the Atenolol 50 mg. Her pressures are controlled. She is 98% saturated on room air. Blood cell count today is normal at 8.0. Platelets are mildly decreased at 149, 000 and the hemoglobin is 10.2, down from 11.1 on June 19. BMP is unremarkable. The creatinine has come down to 0.96 from 1.16 with just some IV fluid. Magnesium is normal at 1.9. Blood sugars are under excellent control. She had some pain after the second therapy session today but, denies pain at the current time No SOB, No CP, no N/V/Abdominal pain, no lightheadedness - Physical Exam General: Alert, Oriented x3, Cooperative, No apparent distress Lungs: Clear to auscultation, Diminished Cardiovascular: Regular rate, Regular Rhythm, Normal S1, Normal S2, No Gallop Abdomen: Bowel Sounds Present, Soft, Non Tender, Non-Distended Extremities: No Calf Tenderness Skin: No rashes Neurological: Cranial nerves II-XII grossly intact, Neuro grossly intact Vital Signs Temp Pulse Resp BP Pulse Ox 98.9 F 67 18 131/56 H 98 07/26/17 16:00 07/26/17 16:00 07/26/17 16:00 07/26/17 16:00 07/26/17 16:00 Oxygen Delivery Method Room Air Weight: 211 lb Body Mass Index (BMI) 41.2 Finger Stick Blood Glucose 119 Intake and Output for Last 24 Hours 07/24/17 07/25/17 07/26/17 23:59 23:59 23:59 Intake Total 2810 / 2810 2464 / 2464 Output Total 900 / 900 600 / 600 Balance 1909 / 19094 / 186 Laboratory Tests Past 24 Hrs 07/26/17 07/26/17 05:40 05:40 WBC 8.0 RBC 3.35 L Hgb 10.2 L Hct 32.7 L MCV 97.6 MCH 30.4 MCHC 31.2 L RDW 14.5 RDW Differential 48.8 H Plt Count 149 L MPV 10.3 Sodium 144 Potassium 4.4 Chloride 109 H Carbon Dioxide 28.0 Anion Gap 7 BUN 18 Creatinine 0.96 Estim Creat Clear Calc 40.85 Est GFR (MDRD) Af Amer 74 Est GFR (MDRD) Non-Af 62 BUN/Creatinine Ratio 18.7 Glucose 97 Calcium 8.2 L Magnesium 1.9 POC Glucose 07/26/17 07/26/17 07/26/17 16:07 11:26 06:33 POC Glucose 96 99 104 07/25/17 07/25/17 21:38 17:37 POC Glucose 134 H 98 Assessment/Plan Active and Suspected Problems S/P total knee arthroplasty (Acute) Dr. Lock 07/25/17 Endometrial cancer (Acute) Impressions 1. S/P R TKA 07/25/17 - POD #1 2. HTN 3. DM II - excellent control.....HGBA1C was 5.4% in June. Monitor the blood sugars QID while in the hospital and will add a Sliding scale 4. Dyslipidemia - lipid panel less than 1 year ago was good and the LDL was 67 5. morbid obesity 6. hx of stage I endometrial CA - S/P CAROL with BSO in 2010 7. Remote history of an unprovoked DVT - Agree with using Eliquis for DVT prophylaxis. I would recommend continuing the Eliquis for 4-6 weeks post op given the hx of the unprovoked DVT in 1998 and the Hx of endometrial CA. 8. Stage II-III CRF - would advise follow up with a supply specialist going forward to help preserve the kidney function. Avoid Nephrotoxins. Would avoid NSAID's snf as this can worsen kidney function. Continue the ARB 9. RBBB - would consider a Nuclear Stress test in the future. She has several risk factors for CAD including DM II, former smoking hx, HLD, HTN, Age > 55, obesity and there is a strong hx of CAD in the family. She has a RBBB which can mask ischemic changes 10. bradycardia She is on 2 negative chronotropic drugs....will DC the Verapamil and continue the Atenolol, [place] and DC the HCTZ If she needs an additional drug for BP will use Amlodipine Continue the Apixaban at [place]. Recheck lab in the AM Code Visit Inpatient E&M: 57373 Subs Hosp L2
[2017-07-26] MEDS: Atorvastatin Calcium 40 MG Tablet PO (21:36)
[2017-07-26] MEDS: Montelukast 10 MG Tablet PO (21:38)
[2017-07-26 23:51] LABS: Bedside Glucose 114 mg/dL (70-110)
[2017-07-27 04:20] VITALS: BP 150/58; PULSE 61; RESP 18; TEMP 37; O2SAT 94
[2017-07-27] MEDS: oxyCODONE 5 MG Tablet PO ×2 (04:37→11:52)
[2017-07-27] MEDS: Acetaminophen 500 MG Tablet 1000 MG PO ×2 (06:02→14:06)
[2017-07-27 06:06] LABS: Bedside Glucose 101 mg/dL (70-110)
[2017-07-27 06:17] LABS: Hemoglobin 9.7 g/dl (12.0-15.0); Mean Corp Hgb Conc 31.3 g/gl (32-36); Mean Corpuscular Hgb 30.3 pg (27.0-32.0); Mean Corpuscular Volume 96.9 fL (81-99); Mean Platelet Vol. 10.7 fl (6.2-12.0); Platelet Count 140 K/mm3 (150-450); RBC Distribution Width CV 14.6 % (11.6-14.6); RBC Distribution Width SD 49.3 fl (35.1-43.9); White Blood Count 8.2 K/mm3 (4.4-11.0)
[2017-07-27 06:19] LABS: Anion Gap 7 (5-15); BUN 22 mg/dL (7-18); BUN/Creat Ratio 21.2 RATIO (10-20); Calcium,Total 8.8 mg/dL (8.5-10.1); Chloride 107 mmol/L (98-107); Creatinine, Serum 1.04 mg/dL (0.55-1.02); EST Glomerular Filtration Rate 56 mL/min (>60); Est Glom Filt Rate - Afr Amer 68 mL/min (>60); Glucose 98 mg/dL (74-106); Potassium 4.5 mmol/L (3.5-5.1); Sodium Level 140 mmol/L (136-145)
[2017-07-27 06:23] LABS: Scan Indicated on CBC? Y/N NO
[2017-07-27 07:12] VITALS: PULSE 58; RESP 18
[2017-07-27] MEDS: Albuterol 2.5 MG/3 ML VIAL.NEB. INHALATION ×2 (07:12→13:36)
[2017-07-27] MEDS: Budesonide Respules 0.5 MG/2 ML AMPUL.NEB. INHALATION (07:12)
[2017-07-27 07:21] LABS: Hemoglobin A1c 5.4 % (4.2-6.3)
[2017-07-27 08:31] VITALS: BP 114/57; PULSE 76; RESP 18; TEMP 36.9; O2SAT 94
[2017-07-27] MEDS: Ketorolac 15 MG/ML Vial IV (08:34)
[2017-07-27] MEDS: 0.9% NaCl Peripheral Flush Adult/Peds IV (08:34)
[2017-07-27] MEDS: Vitamin E 400 UNITS Capsule PO (08:34)
[2017-07-27] MEDS: Atenolol 50 MG Tablet PO (08:34)
[2017-07-27] MEDS: Ascorbic Acid 500 MG Tablet PO (08:35)
[2017-07-27] MEDS: Multivitamins,Therapeutic Tablet 1 TABLET PO (08:35)
[2017-07-27] MEDS: Losartan Potassium 100 MG Tablet PO (08:35)
[2017-07-27] MEDS: Senna/Docusate Sodium 1 Tablet 2 TABLET PO (08:35)
[2017-07-27] MEDS: Pantoprazole Sodium 20 MG Tablet PO (08:36)
[2017-07-27] MEDS: APIXABAN 2.5 MG TABLET PO (08:36)
[2017-07-27] MEDS: Calcium Carb/Vitamin D 1 TABLET Tablet PO (08:36)
[2017-07-27] MEDS: Famotidine 20 MG Tablet PO (08:37)
--- NOTE | 2017-07-27 11:29 | PN.ORTHO_ITS ---
Patient Problems: Active and Suspected Problems S/P total knee arthroplasty (Acute) Dr. Lock 07/25/17 Endometrial cancer (Acute) Subjective: The patient was sitting in bedside chair upon examination. Patient denies any chest pain, shortness of breath, dizziness, lightheadedness, nausea or vomiting , or calf pain. Pain is controlled on medications. No adverse overnight events. Patient is ready for discharge home today. She has been tolerating physical therapy well. Objective: Vital signs stable and afebrile. Patient is able to plantarflex and dorsiflex actively. Sensation is intact to light touch to saphenous, sural, superficial and deep peroneal, and tibial distribution. Dressing is clean dry and intact. Negative Homans bilaterally, negative signs and symptoms of DVT. - Physical Exam General: Alert, Oriented x3, Cooperative, No apparent distress Vital Signs Temp Pulse Resp BP Pulse Ox 98.4 F 76 18 114/57 L 94 07/27/17 08:31 07/27/17 08:31 07/27/17 08:31 07/27/17 08:31 07/27/17 08:31 Oxygen Delivery Method Room Air Weight: 95.708 kg Body Mass Index (BMI) 41.2 Finger Stick Blood Glucose 119 Intake and Output for Last 24 Hours 07/25/17 07/26/17 07/27/17 23:59 23:59 23:59 Intake Total 2810 / 2810 3014 / 3014 500 / 500 Output Total 900 / 900 1200 / 1200 Balance 1910 / 1910 1814 / 1814 500 / 500 Laboratory Tests Past 24 Hrs 07/27/17 07/27/17 07/27/17 05:12 05:12 05:12 WBC 8.2 RBC 3.20 L Hgb 9.7 L Hct 31.0 L MCV 96.9 MCH 30.3 MCHC 31.3 L RDW 14.6 RDW Differential 49.3 H Plt Count 140 L MPV 10.7 Sodium 140 Potassium 4.5 Chloride 107 Carbon Dioxide 26.0 Anion Gap 7 BUN 22 H Creatinine 1.04 H Estim Creat Clear Calc 37.70 Est GFR (MDRD) Af Amer 68 Est GFR (MDRD) Non-Af 56 L BUN/Creatinine Ratio 21.2 H Glucose 98 Hemoglobin A1c 5.4 Calcium 8.8 POC Glucose 07/27/17 07/26/17 07/26/17 05:58 21:33 16:07 POC Glucose 101 114 H 96 07/26/17 11:26 POC Glucose 99 Assessment/Plan Active and Suspected Problems S/P total knee arthroplasty (Acute) Dr. Lock 07/25/17 Endometrial cancer (Acute) 1. S/P right total knee arthroplasty and corticosteroid injection left knee POD #2 2. Continue Pain Medications: Tylenol and OxyIR 3. DVT Prophylaxis: Eliquis 4. PT/OT: Weightbearing as tolerated 5. H & H: 9.7/31.0, asymptomatic 6. Encouraged Incentive Spirometry 7. Continue postoperative medical management per medicine 8. Disposition: Orthopedically stable, plan is for discharge home today. Case was discussed with hospitalist. Med rec will be done by hospitalist. Patient will continue with Eliquis for 30 days postoperatively. Continue with Tylenol 1000 mg every 8 hours and OxyIR 1-2 tablets every 4 hours as needed for pain. Patient will follow-up per postop instructions.
[2017-07-27 12:01] LABS: Bedside Glucose 84 mg/dL (70-110)
--- NOTE | 2017-07-27 13:34 | PCM.DC.TKR ---
<Mauro Campbell - Last Filed: 07/27/17 13:34> Discharge Diet: 1800 Calorie Control Diet Discharge Activity: May Not Drive May shower in (days): 1 - Turned dressing away from water. Ice area for (Minutes): 20 - every hour while awake. Weight Bearing Status: Weight bearing as tolerated Elevate: Operative Extremity Additional Activity Instructions:: Wear elastic stockings for 2 weeks after your surgery. Call your doctor if your incision/area has: Continuous Slow Oozing, Sudden Increased Bleeding, Increased Pain/ Swelling, Increased Redness, Foul Smelling Discharge Call your doctor if you observe: Fever of 101 or Higher, Coldness, Increased Pain, Numbness or Tingling, Change in Color, Calf discomfort, Uncontrolled pain Remove Dressing in (days):: 3 - Okay to remove dressing on July 30, 2017 Additional Instructions: Follow [facility] postop instructions Allergies/Adverse Reactions: Allergies No Known Allergies Allergy (Verified 07/10/17 13:01) Medications to take at Discharge Albuterol Inhaler [Ventolin Hfa] 2 puff INHALATION Q4H PRN PRN 07/10/17 Ascorbic Acid [Vitamin C] 500 mg PO DAILY 07/10/17 Atenolol [Tenormin (beta mc)] 50 mg PO DAILY 07/10/17 Atorvastatin Calcium [Lipitor] 40 mg PO QHS 07/10/17 Budesonide/Formoterol 160/4.5 [Symbicort 160/4.5 Mcg Inhaler (SP)] 2 puff INHALATION DAILY 07/10/17 Calcium Carbonate/Vitamin D3 [Calcium 500-Vit D3 600 Tablet] 1 each PO BID 07/10/17 Cider Vinegar [Apple Cider Vinegar] 300 mg PO BID 07/10/17 Docusate Sodium [Colace] 100 mg PO DAILY PRN PRN 07/10/17 Fluticasone 0.05% [Flonase Nasal [place]] 1 spray NASAL BID PRN PRN 07/10/17 Gluc/Mohan-MSM#1/C/Ruiz/Rogelio/Bor [Osteo Bi-Flex Caplet] 1 each PO BID 07/10/17 Glucosamine/MSM/Chondroitin A [Glucosamine Chondroit MSM Tab] 1 each PO BID 07/10/17 Iron Bis-Gly/FA/C/B12/Ca/Succ [Iron 21/7 Tablet] 1 each PO DAILY 07/10/17 Metformin HCl [Metformin HCl ER] 1,000 mg PO DAILY 07/10/17 Montelukast [Singulair] 10 mg PO DAILY 07/10/17 Multivitamin [Daily Multiple Vitamin] 1 each PO DAILY 07/10/17 Mv-Min/FA/Vit K/Lycop/Lut/Zeax [Ocuvite Eye Plus Multi Tablet] 1 each PO DAILY 07/10/17 Ace-3 Fatty Acids/Fish Oil [Fish Oil 1,000 mg Capsule] 1 each PO BID 07/10/17 Omeprazole [Prilosec] 20 mg PO BID 07/10/17 TraMADol [Ultram] 50 mg PO Q6H PRN PRN 07/10/17 Vitamin E 400 unit PO DAILY 07/10/17 Amlodipine [Norvasc] 5 mg PO DAILY #30 tab 07/27/17 Apixaban [Eliquis] 2.5 mg PO BID #60 tab 07/27/17 Losartan Potassium [Cozaar] 100 mg PO DAILY #30 tab 07/27/17 Oxycodone HCl/Acetaminophen [Percocet 10-325 mg Tablet] 1 tab PO Q6H PRN PRN 7 Days #40 tab 07/27/17 The following prescriptions were given: Oxycodone HCl/Acetaminophen [Percocet 10-325 mg Tablet] 1 tab PO Q6H PRN PRN 7 Days #40 tab PRN Reason: Pain Amlodipine [Norvasc] 5 mg PO DAILY #30 tab Losartan Potassium [Cozaar] 100 mg PO DAILY #30 tab Apixaban [Eliquis] 2.5 mg PO BID #60 tab Primary Care Physician: Mauro Quinones [Primary Care Provider] - Please Follow Up With: [facility] When: 07/28/17 @ 10:00 am with De Please Follow Up With: Mauro Campbell PA-C When: 08/07/17 @ 10:00 am <Doris Knox - Last Filed: 07/27/17 14:46> Call your doctor if you observe: Inability to have a bowel movement, Shortness of breath, Dizziness, Fainting spells, Swelling in the ankles, Chest pain Additional Instructions: You have many risk factors for coronary artery disease. These include former smoking history, hypertension, hyperlipidemia, diabetes mellitus and strong family history of coronary artery disease. At your age I would recommend that you have a stress test when you have recovered from your knee surgery....I do not like to wait until you have chest pain or a heart attack before evaluating your coronary arteries. I prefer to be proactive. Please discuss this with your PCP. Your heart rate was very slow with both Atenolol and verapamil. Both of these medications decreased heart rate. We kept the atenolol and discontinue the verapamil. Your blood pressure is a little high and high have started you on a medication called amlodipine that does not slow the heart rate down to help control the blood pressure. Amlodipine and Verapamil are both calcium channel blockers.....but verapimil slows the heart and the amlodipine if anything increase it by 5 beats or so. You have some chronic kidney disease. there are 5 stages of kidney disease and you are in stage 2-3.....this is mild to moderate. The Losartan is a very good drug to help prevent the progression of the kidney disease. We have not been giving you the diuretic in the hospital because you were a little dehydrated at admission and the kidney function was worse. It has improved with some IV fluids and discontinuation of the diuretic. You should check in with your PCP in the next few weeks to have the BP checked. Please follow up with your Primary Care Physician in: 2-3 weeks
[2017-07-27 13:36] VITALS: PULSE 62; RESP 18
[2017-07-27 14:02] VITALS: BP 133/69; PULSE 68; RESP 18; TEMP 36.7; O2SAT 98
--- NOTE | 2017-07-27 14:57 | PCM.DC.SUM ---
Discharge Date and Diagnosis Date of Admission: 07/25/17 Date of Discharge: 07/27/17 - Primary Discharge Diagnosis Active and Suspected Problems S/P total knee arthroplasty (Acute) Dr. 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 There is good alignment. Postoperative soft tissue changes. Electronically Signed: Kostas Finney MD at 12:51 EDT Tel [phone], Service support , Laboratory Results - last 24 hr 07/26/17 07/26/17 07/27/17 16:07 21:33 05:12 WBC 8.2 RBC 3.20 L Hgb 9.7 L Hct 31.0 L MCV 96.9 MCH 30.3 MCHC 31.3 L RDW 14.6 RDW Differential 49.3 H Plt Count 140 L MPV 10.7 Sodium Potassium Chloride Carbon Dioxide Anion Gap BUN Creatinine Estim Creat Clear Calc Est GFR (MDRD) Af Amer Est GFR (MDRD) Non-Af BUN/Creatinine Ratio Glucose Hemoglobin A1c Calcium POC Glucose 96 114 H 07/27/17 07/27/17 07/27/17 05:12 05:12 05:58 WBC RBC Hgb Hct MCV MCH MCHC RDW RDW Differential Plt Count MPV Sodium 140 Potassium 4.5 Chloride 107 Carbon Dioxide 26.0 Anion Gap 7 BUN 22 H Creatinine 1.04 H Estim Creat Clear Calc 37.70 Est GFR (MDRD) Af Amer 68 Est GFR (MDRD) Non-Af 56 L BUN/Creatinine Ratio 21.2 H Glucose 98 Hemoglobin A1c 5.4 Calcium 8.8 POC Glucose 101 07/27/17 11:51 WBC RBC Hgb Hct MCV MCH MCHC RDW RDW Differential Plt Count MPV Sodium Potassium Chloride Carbon Dioxide Anion Gap BUN Creatinine Estim Creat Clear Calc Est GFR (MDRD) Af Amer Est GFR (MDRD) Non-Af BUN/Creatinine Ratio Glucose Hemoglobin A1c Calcium POC Glucose 84 Dr. Vamsi Lock -[facility] Dr. Kate Knox - hospitalist Operations: total knee replacement - Right total knee replacement done on 07/25/[address] Vamsi Lock Procedures: None Summary of Care Provided: Patient is a 67-year-old female with a past medical history of stage I endometrial cancer hypertension, morbid obesity, lipidemia, osteoarthritis, diabetes mellitus type 2, asthma, GERD, history of unprovoked right leg DVT in 1998, chronic renal failure stage II3, right bundle branch block, former smoking history, strong family history of coronary artery disease and nasal carriage of MSSA who was admitted to [facility] on 07/25/2017 for elective right total knee replacement. Postoperatively the blood pressure was within normal limits but the patient was bradycardic with heart rates in the 40s and low 50s. Pulse ox was 96-98% on room air. She was taking verapamil and atenolol for blood pressure control and these are both negative chronotropic medications. The heart rate remained in the 40s and low 50s even with exertion. Verapamil was discontinued and she was transitioned to amlodipine. Her blood pressure at the time of discharge ranged from 114/57-130 3/69. Preoperative EKG was reviewed and showed a right bundle branch block. She had no chest pain or shortness of breath while in the hospital and her lungs are clear to auscultation. Hemoglobin dropped from 11.1 preoperatively to 9.7 the date of discharge. Significant lab included a hemoglobin A1c of 5.4. Blood sugars were under excellent control in the hospital. She has several risk factors for coronary artery disease including diabetes mellitus type 2, hypertension, hyperlipidemia, age greater than 55, former smoking history and strong family history of coronary artery disease. She has never had a stress test. Recommend obtaining an outpatient stress test when she has recovered from her knee surgery. She was discharged on 07/27/2017 and will follow up with Dr. Lock in the office in 2 weeks. She will follow-up with Dr. Quinones within 2-3 weeks to have her blood pressure rechecked. Discharge Diet: 1800 Calorie Control Diet Discharge Activity: May Not Drive May shower in (days): 1 - Turned dressing away from water. Ice area for (Minutes): 20 - every hour while awake. Weight Bearing Status: Weight bearing as tolerated Keep extremity elevated above heart level: Operative Extremity Additional Activity Instructions:: Wear elastic stockings for 2 weeks after your surgery. Call your doctor if your incision/area has: Continuous Slow Oozing, Sudden Increased Bleeding, Increased Pain/ Swelling, Increased Redness, Foul Smelling Discharge Call your doctor if you observe: Inability to have a bowel movement, Shortness of breath, Dizziness, Fainting spells, Swelling in the ankles, Chest pain Remove Dressing in (days):: 3 - Okay to remove dressing on July 30, 2017 Home Medications: Medications to take at Discharge Albuterol Inhaler [Ventolin Hfa] 2 puff INHALATION Q4H PRN PRN 07/10/17 Ascorbic Acid [Vitamin C] 500 mg PO DAILY 07/10/17 Atenolol [Tenormin (beta mc)] 50 mg PO DAILY 07/10/17 Atorvastatin Calcium [Lipitor] 40 mg PO QHS 07/10/17 Budesonide/Formoterol 160/4.5 [Symbicort 160/4.5 Mcg Inhaler (SP)] 2 puff INHALATION DAILY 07/10/17 Calcium Carbonate/Vitamin D3 [Calcium 500-Vit D3 600 Tablet] 1 each PO BID 07/10/17 Cider Vinegar [Apple Cider Vinegar] 300 mg PO BID 07/10/17 Docusate Sodium [Colace] 100 mg PO DAILY PRN PRN 07/10/17 Fluticasone 0.05% [Flonase Nasal [place]] 1 spray NASAL BID PRN PRN 07/10/17 Gluc/Mohan-MSM#1/C/Ruiz/Rogelio/Bor [Osteo Bi-Flex Caplet] 1 each PO BID 07/10/17 Glucosamine/MSM/Chondroitin A [Glucosamine Chondroit MSM Tab] 1 each PO BID 07/10/17 Iron Bis-Gly/FA/C/B12/Ca/Succ [Iron 21/7 Tablet] 1 each PO DAILY 07/10/17 Metformin HCl [Metformin HCl ER] 1,000 mg PO DAILY 07/10/17 Montelukast [Singulair] 10 mg PO DAILY 07/10/17 Multivitamin [Daily Multiple Vitamin] 1 each PO DAILY 07/10/17 Mv-Min/FA/Vit K/Lycop/Lut/Zeax [Ocuvite Eye Plus Multi Tablet] 1 each PO DAILY 07/10/17 [place]-3 Fatty Acids/Fish Oil [Fish Oil 1,000 mg Capsule] 1 each PO BID 07/10/17 Omeprazole [Prilosec] 20 mg PO BID 07/10/17 TraMADol [Ultram] 50 mg PO Q6H PRN PRN 07/10/17 Vitamin E 400 unit PO DAILY 07/10/17 Amlodipine [Norvasc] 5 mg PO DAILY #30 tab 07/27/17 Apixaban [Eliquis] 2.5 mg PO BID #60 tab 07/27/17 Losartan Potassium [Cozaar] 100 mg PO DAILY #30 tab 07/27/17 Oxycodone HCl/Acetaminophen [Percocet 10-325 mg Tablet] 1 tab PO Q6H PRN PRN 7 Days #40 tab 07/27/17 Following Prescrptions Were Given to Patient: Oxycodone HCl/Acetaminophen [Percocet 10-325 mg Tablet] 1 tab PO Q6H PRN PRN 7 Days #40 tab PRN Reason: Pain Amlodipine [Norvasc] 5 mg PO DAILY #30 tab Losartan Potassium [Cozaar] 100 mg PO DAILY #30 tab Apixaban [Eliquis] 2.5 mg PO BID #60 tab Primary Care Physician: Mauro Quinones [Primary Care Provider] - Please follow up with your Primary Care Physician in: 2-3 weeks Please Follow Up With: [facility] When: 07/28/17 @ 10:00 am with De Please Follow Up With: Mauro Campbell PA-C When: 08/07/17 @ 10:00 am Additional Instructions: You have many risk factors for coronary artery disease. These include former smoking history, hypertension, hyperlipidemia, diabetes mellitus and strong family history of coronary artery disease. At your age I would recommend that you have a stress test when you have recovered from your knee surgery....I do not like to wait until you have chest pain or a heart attack before evaluating your coronary arteries. I prefer to be proactive. Please discuss this with your PCP. Your heart rate was very slow with both Atenolol and verapamil. Both of these medications decreased heart rate. We kept the atenolol and discontinue the verapamil. Your blood pressure is a little high and high have started you on a medication called amlodipine that does not slow the heart rate down to help control the blood pressure. Amlodipine and Verapamil are both calcium channel blockers.....but verapimil slows the heart and the amlodipine if anything increase it by 5 beats or so. You have some chronic kidney disease. there are 5 stages of kidney disease and you are in stage 2-3.....this is mild to moderate. The Losartan is a very good drug to help prevent the progression of the kidney disease. We have not been giving you the diuretic in the hospital because you were a little dehydrated at admission and the kidney function was worse. It has improved with some IV fluids and discontinuation of the diuretic. You should check in with your PCP in the next few weeks to have the BP checked. Meaningful Use Info Meaningful Use Diagnoses (Choose all that apply): None applicable Code Visit Inpatient E&M: 41634 Disch Hosp
--- NOTE | 2017-07-27 15:00 | DS.PCM_ITS ---
Discharge Date and Diagnosis Date of Admission: 07/25/17 Date of Discharge: 07/27/17 - Primary Discharge Diagnosis Active and Suspected Problems S/P total knee arthroplasty (Acute) Dr. 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 There is good alignment. Postoperative soft tissue changes. Electronically Signed: Kostas Finney MD at 12:51 EDT Tel [phone], Service support , Laboratory Results - last 24 hr 07/26/17 07/26/17 07/27/17 16:07 21:33 05:12 WBC 8.2 RBC 3.20 L Hgb 9.7 L Hct 31.0 L MCV 96.9 MCH 30.3 MCHC 31.3 L RDW 14.6 RDW Differential 49.3 H Plt Count 140 L MPV 10.7 Sodium Potassium Chloride Carbon Dioxide Anion Gap BUN Creatinine Estim Creat Clear Calc Est GFR (MDRD) Af Amer Est GFR (MDRD) Non-Af BUN/Creatinine Ratio Glucose Hemoglobin A1c Calcium POC Glucose 96 114 H 07/27/17 07/27/17 07/27/17 05:12 05:12 05:58 WBC RBC Hgb Hct MCV MCH MCHC RDW RDW Differential Plt Count MPV Sodium 140 Potassium 4.5 Chloride 107 Carbon Dioxide 26.0 Anion Gap 7 BUN 22 H Creatinine 1.04 H Estim Creat Clear Calc 37.70 Est GFR (MDRD) Af Amer 68 Est GFR (MDRD) Non-Af 56 L BUN/Creatinine Ratio 21.2 H Glucose 98 Hemoglobin A1c 5.4 Calcium 8.8 POC Glucose 101 07/27/17 11:51 WBC RBC Hgb Hct MCV MCH MCHC RDW RDW Differential Plt Count MPV Sodium Potassium Chloride Carbon Dioxide Anion Gap BUN Creatinine Estim Creat Clear Calc Est GFR (MDRD) Af Amer Est GFR (MDRD) Non-Af BUN/Creatinine Ratio Glucose Hemoglobin A1c Calcium POC Glucose 84 Dr. Vamsi Lock -[facility] Dr. Kate Knox - hospitalist Operations: total knee replacement - Right total knee replacement done on [address] Vamsi Lock Procedures: None Summary of Care Provided: Patient is a 67-year-old female with a past medical history of stage I endometrial cancer hypertension, morbid obesity, lipidemia, osteoarthritis, diabetes mellitus type 2, asthma, GERD, history of unprovoked right leg DVT in 1998, chronic renal failure stage II3, right bundle branch block, former smoking history, strong family history of coronary artery disease and nasal carriage of MSSA who was admitted to [facility] on 07/25/2017 for elective right total knee replacement. Postoperatively the blood pressure was within normal limits but the patient was bradycardic with heart rates in the 40s and low 50s. Pulse ox was 96-98% on room air. She was taking verapamil and atenolol for blood pressure control and these are both negative chronotropic medications. The heart rate remained in the 40s and low 50s even with exertion. Verapamil was discontinued and she was transitioned to amlodipine. Her blood pressure at the time of discharge ranged from 114/57-130 3/69. Preoperative EKG was reviewed and showed a right bundle branch block. She had no chest pain or shortness of breath while in the hospital and her lungs are clear to auscultation. Hemoglobin dropped from 11.1 preoperatively to 9.7 the date of discharge. Significant lab included a hemoglobin A1c of 5.4. Blood sugars were under excellent control in the hospital. She has several risk factors for coronary artery disease including diabetes mellitus type 2, hypertension, hyperlipidemia, age greater than 55, former smoking history and strong family history of coronary artery disease. She has never had a stress test. Recommend obtaining an outpatient stress test when she has recovered from her knee surgery. She was discharged on 07/27/2017 and will follow up with Dr. Lock in the office in 2 weeks. She will follow- up with Dr. Quinones within 2-3 weeks to have her blood pressure rechecked. Discharge Diet: 1800 Calorie Control Diet Discharge Activity: May Not Drive May shower in (days): 1 - Turned dressing away from water. Ice area for (Minutes): 20 - every hour while awake. Weight Bearing Status: Weight bearing as tolerated Keep extremity elevated above heart level: Operative Extremity Additional Activity Instructions:: Wear elastic stockings for 2 weeks after your surgery. Call your doctor if your incision/area has: Continuous Slow Oozing, Sudden Increased Bleeding, Increased Pain/ Swelling, Increased Redness, Foul Smelling Discharge Call your doctor if you observe: Inability to have a bowel movement, Shortness of breath, Dizziness, Fainting spells, Swelling in the ankles, Chest pain Remove Dressing in (days):: 3 - Okay to remove dressing on July 30, 2017 Home Medications: Medications to take at Discharge Albuterol Inhaler [Ventolin Hfa] 2 puff INHALATION Q4H PRN PRN 07/10/17 Ascorbic Acid [Vitamin C] 500 mg PO DAILY 07/10/17 Atenolol [Tenormin (beta mc)] 50 mg PO DAILY 07/10/17 Atorvastatin Calcium [Lipitor] 40 mg PO QHS 07/10/17 Budesonide/Formoterol 160/4.5 [Symbicort 160/4.5 Mcg Inhaler (SP)] 2 puff INHALATION DAILY 07/10/17 Calcium Carbonate/Vitamin D3 [Calcium 500-Vit D3 600 Tablet] 1 each PO BID 07/10 Cider Vinegar [Apple Cider Vinegar] 300 mg PO BID 07/10/17 Docusate Sodium [Colace] 100 mg PO DAILY PRN PRN 07/10/17 Fluticasone 0.05% [Flonase Nasal [place]] 1 spray NASAL BID PRN PRN 07/10/17 Gluc/Mohan-MSM#1/C/Ruiz/Rogelio/Bor [Osteo Bi-Flex Caplet] 1 each PO BID 07/10/17 Glucosamine/MSM/Chondroitin A [Glucosamine Chondroit MSM Tab] 1 each PO BID Iron Bis-Gly/FA/C/B12/Ca/Succ [Iron 21/7 Tablet] 1 each PO DAILY 07/10/17 Metformin HCl [Metformin HCl ER] 1,000 mg PO DAILY 07/10/17 Montelukast [Singulair] 10 mg PO DAILY 07/10/17 Multivitamin [Daily Multiple Vitamin] 1 each PO DAILY 07/10/17 Mv-Min/FA/Vit K/Lycop/Lut/Zeax [Ocuvite Eye Plus Multi Tablet] 1 each PO DAILY 07/10/17 [place]-3 Fatty Acids/Fish Oil [Fish Oil 1,000 mg Capsule] 1 each PO BID 07/10/17 Omeprazole [Prilosec] 20 mg PO BID 07/10/17 TraMADol [Ultram] 50 mg PO Q6H PRN PRN 07/10/17 Vitamin E 400 unit PO DAILY 07/10/17 Amlodipine [Norvasc] 5 mg PO DAILY #30 tab 07/27/17 Apixaban [Eliquis] 2.5 mg PO BID #60 tab 07/27/17 Losartan Potassium [Cozaar] 100 mg PO DAILY #30 tab 07/27/17 Oxycodone HCl/Acetaminophen [Percocet 10-325 mg Tablet] 1 tab PO Q6H PRN PRN 7 Days #40 tab 07/27/17 Following Prescrptions Were Given to Patient: Oxycodone HCl/Acetaminophen [Percocet 10-325 mg Tablet] 1 tab PO Q6H PRN PRN 7 Days #40 tab PRN Reason: Pain Amlodipine [Norvasc] 5 mg PO DAILY #30 tab Losartan Potassium [Cozaar] 100 mg PO DAILY #30 tab Apixaban [Eliquis] 2.5 mg PO BID #60 tab Primary Care Physician: Mauro Quinones [Primary Care Provider] - Please follow up with your Primary Care Physician in: 2-3 weeks Please Follow Up With: [facility] When: 07/28/17 @ 10:00 am with De Please Follow Up With: Mauro Campbell PA-C When: 08/07/17 @ 10:00 am Additional Instructions: You have many risk factors for coronary artery disease. These include former smoking history, hypertension, hyperlipidemia, diabetes mellitus and strong family history of coronary artery disease. At your age I would recommend that you have a stress test when you have recovered from your knee surgery....I do not like to wait until you have chest pain or a heart attack before evaluating your coronary arteries. I prefer to be proactive. Please discuss this with your PCP. Your heart rate was very slow with both Atenolol and verapamil. Both of these medications decreased heart rate. We kept the atenolol and discontinue the verapamil. Your blood pressure is a little high and high have started you on a medication called amlodipine that does not slow the heart rate down to help control the blood pressure. Amlodipine and Verapamil are both calcium channel blockers.....but verapimil slows the heart and the amlodipine if anything increase it by 5 beats or so. You have some chronic kidney disease. there are 5 stages of kidney disease and you are in stage 2-3.....this is mild to moderate. The Losartan is a very good drug to help prevent the progression of the kidney disease. We have not been giving you the diuretic in the hospital because you were a little dehydrated at admission and the kidney function was worse. It has improved with some IV fluids and discontinuation of the diuretic. You should check in with your PCP in the next few weeks to have the BP checked. Meaningful Use Info Meaningful Use Diagnoses (Choose all that apply): None applicable Code Visit Inpatient E&M: 83309 Disch Hosp
== END 2017-07-27 16:16 | disposition home or self-care (01) | DRG 470 ==
LOC: ACINP 05:22 → MS3 08:20
PROVIDERS: Internal Medicine; Admitting Provider Specialist; Visit Provider Specialist
PROC: 0SRC0J9 Replacement of Right Knee Joint with Synthetic Substitute, Cemented, Open Approach (ICD-10-PCS; CPT 27447; principal; 2017-07-25 06:45)
DX: M17.0 Bilateral primary osteoarthritis of knee (principal); E11.22 Type 2 diabetes mellitus with diabetic chronic kidney disease; E66.01 Morbid (severe) obesity due to excess calories; N18.3 Chronic kidney disease, stage 3 (moderate); Z68.41 Body mass index [BMI] 40.0-44.9, adult; D62 Acute posthemorrhagic anemia; I12.9 Hypertensive chronic kidney disease with stage 1 through stage 4 chronic kidney disease, or unspecified chronic kidney disease; E78.5 Hyperlipidemia, unspecified; I45.10 Unspecified right bundle-branch block; Z90.710 Acquired absence of both cervix and uterus; Z90.722 Acquired absence of ovaries, bilateral; Z85.42 Personal history of malignant neoplasm of other parts of uterus; Z87.891 Personal history of nicotine dependence; Z79.84 Long term (current) use of oral hypoglycemic drugs; Z79.899 Other long term (current) drug therapy; J45.909 Unspecified asthma, uncomplicated; K21.9 Gastro-esophageal reflux disease without esophagitis; Z86.718 Personal history of other venous thrombosis and embolism; Z82.49 Family history of ischemic heart disease and other diseases of the circulatory system; Z22.321 Carrier or suspected carrier of Methicillin susceptible Staphylococcus aureus; R00.1 Bradycardia, unspecified
CPT/HCPCS: 36415; 73560; 80048; 82962; 83036; 83735; 85027; 87077; 87081; 93005; 94640; 94762; 97110; 97116; 97162; 97165; 97530; 97535; 99251; J7120; A4216; G0463

== ENCOUNTER → 2018-01-04 06:18 | Outpatient (CLI) | payer MEDICARE, SELFPAY ==
--- NOTE | 2018-01-04 09:41 | STRESSREP ---
Stress Test Report Date: 01/04/2018 Procedure: Pharmacologic stress nuclear imaging study Indications: Chest pain; abnormal ECG Consent: Per the patient Procedure: The patient underwent pharmacologic (Regadenoson) evaluation with a peak heart rate of 90 beats per minute (58 predicted maximal heart rate) and a peak blood pressure of 110/80 mmHg. The baseline ECG demonstrated sinus bradycardia; right bundle branch block. The peak pharmacologic ECG demonstrated continued right bundle branch block pattern. There were no cardiac dysrhythmias pretest, during pharmacologic infusion, or recovery. There was no complaint of chest discomfort during pharmacologic infusion or recovery. The examination was discontinued secondary to completion of protocol. Impression: 1. Pharmacologic (Regadenoson) evaluation 2. Peak pharmacologic ECG with continued right bundle branch block pattern. 3. There were no cardiac dysrhythmias pretest, during pharmacologic infusion, or recovery 4. Nuclear images pending Myocardial perfusion imaging study: Technique: The patient was injected with 14.6 millicuries of technetium 99m Cardiolite and subsequently rest SPECT Cardiolite nuclear imaging was obtained in the horizontal long, vertical long, and short axis views. The patient underwent pharmacologic (Regadenoson) evaluation with a peak heart rate of 90 beats per minute (58 % percent predicted maximal heart rate) and a peak blood pressure of 110/80 mmHg. The patient was injected with 44.7 millicuries of technetium 99m Cardiolite and subsequently stress SPECT Cardiolite nuclear imaging was obtained in the horizontal long, vertical long, and short axis views. A gated Cardiolite study at peak stress was obtained. Interpretation: Rest and stress SPECT Cardiolite nuclear imaging status post realignment, normalization, and attenuation correction demonstrate a small area of subtle diminished tracer uptake near the apical segments which appear somewhat more prominent following stress. Also there is an area of diminished myocardial perfusion/tracer uptake in portions of the mid towards distal anteroseptal/septal apical segments following stress. There are similar type findings on the resting and stress polar map images. There is end systolic thickening and brightening. The gated Cardiolite study demonstrates myocardial thickening and inward wall motion. The reported LVEF is 77 %. Impression: 1. Rest and stress SPECT Cardiolite nuclear imaging demonstrate myocardial perfusion changes potentially compatible with a combination of physiologic apical thinning as well as being concerning for an area of stress-induced myocardial ischemia involving portions of the mid to distal anteroseptal/septal apical segments, although, an area of shifting soft tissue attenuation/artifact cannot necessarily be excluded. 2. The gated Cardiolite study reports an LVEF of 77 %. This note was generated with Buttercoination software. It may contain incorrect words, spelling, and punctuation that were not noted in checking the note before signing.
== END ==
PROVIDERS: Visit Provider Internal Medicine Cardiovascular Disease
DX: R07.2 Precordial pain (principal); R07.9 Chest pain, unspecified; I45.10 Unspecified right bundle-branch block; E78.5 Hyperlipidemia, unspecified; I10 Essential (primary) hypertension
CPT/HCPCS: 78452; 93017; 93306; A9500; Q9957; A4216; C8929; J2785

== ENCOUNTER → 2018-01-09 10:34 | Outpatient (CLI) | payer MEDICARE, SELFPAY ==
[2018-01-09 12:38] LABS: Hematocrit 39.9 % (37-47); Hemoglobin 12.3 g/dl (12.0-15.0); Mean Corp Hgb Conc 30.8 g/gl (32-36); Mean Corpuscular Hgb 30.1 pg (27.0-32.0); Mean Corpuscular Volume 97.8 fL (81-99); Mean Platelet Vol. 10.9 fl (6.2-12.0); Platelet Count 145 K/mm3 (150-450); RBC Distribution Width CV 14.2 % (11.6-14.6); RBC Distribution Width SD 51.1 fl (35.1-43.9); Red Blood Count 4.08 M/mm3 (4.2-5.4); White Blood Count 4.6 K/mm3 (4.4-11.0)
[2018-01-09 12:39] LABS: Scan Indicated on CBC? Y/N NO
[2018-01-09 12:50] LABS: International Normalized Ratio 0.9; Prothrombin Time (Protime)PT. 12.5 SECONDS (11.7-14.9)
[2018-01-09 12:51] LABS: Partial Thromboplast Time 34.2 Seconds (24.1-36.2)
[2018-01-09 13:00] LABS: Anion Gap 7 (5-15); BUN 24 mg/dL (7-18); Chloride 109 mmol/L (98-107); Creatinine, Serum 1.09 mg/dL (0.55-1.02); EST Glomerular Filtration Rate 53 mL/min (>60); Est Glom Filt Rate - Afr Amer 64 mL/min (>60); Glucose 84 mg/dL (74-106); Potassium 4.1 mmol/L (3.5-5.1); Sodium Level 143 mmol/L (136-145)
== END ==
PROVIDERS: Visit Provider Internal Medicine Cardiovascular Disease
DX: I10 Essential (primary) hypertension (principal); R94.39 Abnormal result of other cardiovascular function study; R07.9 Chest pain, unspecified; I45.10 Unspecified right bundle-branch block
CPT/HCPCS: 36415; 71046; 80048; 85027; 85610; 85730

== ENCOUNTER 2018-01-30 07:41 | Day surgery (SDC) | payer MEDICARE, SELFPAY ==
[2018-01-29 11:36] VITALS: BMI 39.9
--- NOTE | 2018-01-30 10:34 | CL.D_ITS ---
Patient Name: JABIER ALAMO Study Date: 01/30/2018 Performing: Ivan Salinas MD Ht: 61.02 inches 155 cm : 1950 Wt: 211.64 lbs 96 kg Age: 67 Gender: female BSA: 1.94 PROCEDURE(S) PERFORMED [id number]/LV CLINICAL PROFILE AND INDICATIONS Indications: Suspected CAD Heart Failure: None Stress/Imaging Stress Test w/SPECT MPI: Yes Result: PositiveStress Test with SPECT MPI: Positive Angina Classification Anginal Classification w/in 2 Weeks: CCS III CAD Presentations: Unstable angina. CONCLUSIONS Elevated Left Ventricular End Diastolic Pressure Normal LV size, wall motion,and systolic function LVEF: by LV gram 65 % LAD: Proximal: mild calcification Coronary arteries: angiographically normal appearing RECOMMENDATIONS Risk factor modification Medical therapy Non CAD evaluation of chest pain / dyspnea DESCRIPTION OF PROCEDURE The patient arrived to the procedure lab. The risks and benefits of the procedure as well as a full d escription of our services here and current unavailability of surgical backup were fully explained to the patient and/or their significant other prior to the catheterization. The Timeout was completed, verifying the correct patient and procedure. The patient's procedural site was prepped and draped in the usual fashion. Local anesthetic was given subcutaneously to right radial region with Lidocaine 2% . Using a modified Seldinger technique, arterial access was obtained via the right radial artery, a 6 Fr sheath was inserted. Right Coronary Artery selective angiography was then performed in multiple v iews using a 5 Fr. 4.0 [place] catheter. Left Coronary Artery selective angiography was performed in mu ltiple views using a 5 Fr. JL3.5 catheter. Left Ventriculography was performed in FUENTES projection usin g a 5 Fr. Pigtail catheter. LV to AO pullback pressures were then recorded.The arterial sheath was pu lled and a TR Band was applied for hemostasis w/ 14ml air CORONARY ANGIOGRAPHY DOMINANCE: Right Dominant LEFT HEART ASSESSMENT Left Ventricular Ejection Fraction: by LV Gram 65 % Normal LV wall motion Elevated Left Ventricular End Diastolic Pressure LVEDP: 25 mmHg LEFT ANTERIOR DECENDING ARTERY: Angiographically normal PROX LAD: Mild calcification CIRCUMFLEX ARTERY: Angiographically normal RIGHT CORONARY ARTERY: Angiographically normal VALVE FINDINGS: Normal Aortic Valve function Normal Mitral Valve function AORTIC ROOT: Angiographically normal COMPLICATIONS No Complications PROCEDURE MEDICATIONS Fentanyl 50 mcg IV Versed 1 mg IV Fentanyl 50 mcg IV Versed 1 mg IV Oxygen: 2 L/min via nasal cannula Oxygen: 3 L/min via nasal cannula Heparin diluted in 23cc Heparinized saline. Patient given 10cc IA of this solution. 01/30/2018 09:52: 07 Verapamil 2.5mg, Ntg 100mcgs, 2000 units of Heparin diluted in 23cc Heparinized saline. Patient give n 10cc IA of this solution. 01/30/2018 09:52:07 SUMMARY OF HEMODYNAMIC DATA Time AIR REST ECG 08:31:34 AO 132/65 (91) SA 09:55:29 LV 137/12, 30 10:12:58 LV 136/14, 25 10:13:04 LV 67/16, 23 10:14:44 LVp 121/18, 39 10:14:53 AOp 138/57 (90) 10:14:58 Signed By Ivan Salinas MD On 01/30/2018 10:33:54 Ivan Salinas MD
== END 2018-01-30 13:15 | disposition home or self-care (01) ==
LOC: CLSP 07:42
PROVIDERS: Visit Provider Internal Medicine Cardiovascular Disease
DX: R07.2 Precordial pain (principal); I45.10 Unspecified right bundle-branch block; E78.5 Hyperlipidemia, unspecified; I12.9 Hypertensive chronic kidney disease with stage 1 through stage 4 chronic kidney disease, or unspecified chronic kidney disease; E11.22 Type 2 diabetes mellitus with diabetic chronic kidney disease; N18.3 Chronic kidney disease, stage 3 (moderate); Z79.51 Long term (current) use of inhaled steroids; Z79.84 Long term (current) use of oral hypoglycemic drugs; Z79.899 Other long term (current) drug therapy; E66.01 Morbid (severe) obesity due to excess calories; K21.9 Gastro-esophageal reflux disease without esophagitis; M19.90 Unspecified osteoarthritis, unspecified site; Z68.39 Body mass index [BMI] 39.0-39.9, adult; Z85.42 Personal history of malignant neoplasm of other parts of uterus; Z87.891 Personal history of nicotine dependence
CPT/HCPCS: 93458; 99152; 99153; J7040; Q9967; C1769; C1894

== ENCOUNTER → 2018-02-01 13:28 | Outpatient (CLI) | payer MEDICARE, SELFPAY ==
[2018-02-01 16:03] LABS: Anion Gap 10 (5-15); BUN 18 mg/dL (7-18); BUN/Creat Ratio 16.5 RATIO (10-20); Calcium,Total 8.7 mg/dL (8.5-10.1); Chloride 106 mmol/L (98-107); Creatinine, Serum 1.09 mg/dL (0.55-1.02); EST Glomerular Filtration Rate 53 mL/min (>60); Est Glom Filt Rate - Afr Amer 64 mL/min (>60); Glucose 132 mg/dL (74-106); Potassium 3.8 mmol/L (3.5-5.1); Sodium Level 141 mmol/L (136-145)
== END ==
PROVIDERS: Visit Provider Internal Medicine Cardiovascular Disease
DX: I12.9 Hypertensive chronic kidney disease with stage 1 through stage 4 chronic kidney disease, or unspecified chronic kidney disease (principal); N18.3 Chronic kidney disease, stage 3 (moderate)
CPT/HCPCS: 36415; 80048

== ENCOUNTER 2018-03-15 22:24 | Emergency (ER) | payer MEDICARE, SELFPAY ==
[2018-03-15 22:25] VITALS: BP 159/69; PULSE 77; RESP 18; TEMP 36.3; O2SAT 97; BMI 40.7
--- NOTE | 2018-03-15 22:38 | ED.VISSUMM ---
- ER Visit Summary Date of Service: 03/15/18 Chief Complaint: Left hand injury History of Present Illness: The patient is a 67 F presents to the emergency department with left hand injury after a fall. Patient was in her normal state of health. She states that she was trying to get That was hiding. She lost her balance and fell. She caught herself with her left hand. She is had pain in her third and fourth fingers and has been unable to flex them since. She did not strike her head. She denies loss consciousness. She did strike her left knee, but really denies any pain. She has been able to bear weight without issue. Physical Examination: Exam is relatively unremarkable. Patient does have what appears to be dislocation of the PIP of the third and fourth on the left hand. Her cap refill is normal. Her two-point determination is preserved. Pulses in the hand are normal. Rest of exam is unremarkable. Test Results: [] Emergency Department Course and Treatment: The patient underwent plain films. She does have dislocation of the mid and distal phalanges compared to the proximal phalanges of the third and fourth finger. There is no skin tenting. I discussed options with the patient and she wanted to go with a digital block. Bupivacaine was injected to block the third and fourth fingers. She was reduced at bedside. X-rays after reduction show that it was reduced without issue. She is placed in AlumaFoam splinting of the third and fourth finger. At this time, she will be discharged home. Treatment Plan: [] Disposition: Discharge Impression: 1. Dislocation of the left third and fourth PIP joint with reduction 2. Digital block This note was generated with Produce Runation software. It may contain incorrect words, spelling, and punctuation that were not noted in review of the chart prior to signing ED Disposition - Plan for ED Patient: Chief Complaint: Fall Instructions: ED Dislocation Finger Redu Referrals: Kishore Lock MD [STAFF PHYSICIAN] - 3-5 Days
--- NOTE | 2018-03-15 22:40 | RAD_ITS ---
STUDY: X-RAY - LEFT HAND REASON FOR EXAM: Female, 67 years old. Fall, pain. TECHNIQUE: 3 view(s) of the hand. COMPARISON: None. FINDINGS: There is joint space narrowing of the radiocarpal articulation consistent with degenerative arthrosis. Normal distal radioulnar joint. Normal visualized carpal bones. Normal carpal articulations There is degenerative arthrosis of the carpometacarpal (CMC) articulation of the thumb. Normal second through fifth carpometacarpal joints. Normal metacarpi. There is degenerative arthrosis of the metacarpophalangeal (MCP) joints. There is degenerative arthrosis of the interphalangeal joint of the thumb with articular joint space narrowing. Normal proximal and distal phalanges of the thumb. Normal metacarpophalangeal joints of the second through fifth fingers. There is posterior dislocation of the third and fourth middle phalanges relative to the proximal phalanges. No acute fracture is seen. There is diffuse articular joint space narrowing of the proximal and distal interphalangeal joints of the second through fifth fingers. The soft tissue structures are unremarkable. RAD/Hand Min 3 Views IMPRESSION: Posterior dislocation of the third and fourth middle phalanges. Degenerative changes. Electronically Signed: Jacy Bland MD at 22:55 EDT Tel , Service support ,
--- NOTE | 2018-03-15 23:10 | RAD_ITS ---
STUDY: X-RAY - LEFT HAND REASON FOR EXAM: Female, 67 years old. Post reduction of third and fourth digits. TECHNIQUE: 2 view(s) of the hand. COMPARISON: March 15, 2018 at 10:45 PM. FINDINGS: There is joint space narrowing of the radiocarpal articulation consistent with degenerative arthrosis. Normal distal radioulnar joint. Normal visualized carpal bones. Normal carpal articulations There is degenerative arthrosis of the carpometacarpal (CMC) articulation of the thumb. Normal second through fifth carpometacarpal joints. Normal metacarpi. There is degenerative arthrosis of the metacarpophalangeal (MCP) joints. There is degenerative arthrosis of the interphalangeal joint of the thumb with articular joint space narrowing. Normal proximal and distal phalanges of the thumb. Normal metacarpophalangeal joints of the second through fifth fingers. There has been interval successful reduction of the third and fourth digits. No acute fracture is seen. There is diffuse articular joint space narrowing of the proximal and distal interphalangeal joints of the second through fifth fingers. RAD/Hand 2 Views IMPRESSION: Successful reduction of the third and fourth digits. Electronically Signed: Jacy Bland MD at 23:26 EDT Tel , Service support ,
[2018-03-15] MEDS: Bupivacaine Mpf 0.5% 30 ML VIAL INFILT (23:29)
[2018-03-15 23:40] VITALS: BP 154/60; PULSE 76; RESP 18; O2SAT 95
== END 2018-03-15 23:40 | disposition home or self-care (01) ==
LOC: ED 22:57
PROVIDERS: Emergency Provider Emergency Medicine
DX: S63.283A Dislocation of proximal interphalangeal joint of left middle finger, initial encounter (principal); S63.285A Dislocation of proximal interphalangeal joint of left ring finger, initial encounter; I10 Essential (primary) hypertension; I25.10 Atherosclerotic heart disease of native coronary artery without angina pectoris; Z79.51 Long term (current) use of inhaled steroids; Z79.82 Long term (current) use of aspirin; Z79.84 Long term (current) use of oral hypoglycemic drugs; Z79.891 Long term (current) use of opiate analgesic; Z79.899 Other long term (current) drug therapy; W19.XXXA Unspecified fall, initial encounter; Y93.89 Activity, other specified; Y92.89 Other specified places as the place of occurrence of the external cause; Y99.8 Other external cause status
CPT/HCPCS: 26770 ×2; 73120; 73130; 99283

== ENCOUNTER → 2018-03-21 09:59 | Outpatient (CLI) | payer MEDICARE, SELFPAY ==
--- NOTE | 2018-03-21 12:11 | BI_ITS ---
MAMMOGRAPHY - BILATERAL SCREENING REASON FOR EXAM: Female, 68 years old. Routine annual screening examination. PERTINENT HISTORY: Mother with breast cancer. TECHNIQUE: Digital bilateral breast yasemin (3D mammographic acquisition) in the CC and MLO projections. 2-D mediolateral oblique (MLO) and craniocaudad (CC) views of both breasts were obtained. CAD: Full Field Digital Mammography with Computer Added Detection was performed. COMPARISON: Comparison is made with prior study dated January 30, 2017 and January 04, 2016 FINDINGS: Breast Composition: The breasts are almost entirely fatty. There are no dominant masses or suspicious calcifications. Stable benign-appearing bilateral axillary lymph nodes. No other significant abnormalities are identified. There has been no significant change since the prior study. BI/SCREENING MAMM (CAD), BILAT IMPRESSION: Stable bilateral screening mammogram. Yearly follow-up mammogram recommended. (A) ASSESSMENT CATEGORY: BIRADS Category 2: Benign. A letter regarding these results will be sent to the patient by the facility within 30 days. Approximately 10% of breast cancers are not detected by mammography. A normal mammogram should not delay biopsy of a clinically suspicious abnormality. [id number] Electronically Signed: Kostas Finney MD at 13:51 EST Tel [phone], Service support ,
[2018-03-21 12:25] LABS: AST(SGOT) 19 U/L (15-37); Alanine Aminotransfer ALT/SGPT 31 U/L (13-56); Albumin, Serum 3.5 g/dL (3.2-5.0); Alkaline Phosphatase 66 U/L (45-117); Bilirubin, Direct 0.18 mg/dL (0.00-0.30); Cholesterol 126 mg/dL (200); Globulin 3.6 g/dL (2.2-4.2); High Density Lipoprotein 32 mg/dL; Protein, Total 7.1 g/dL (6.4-8.2); Triglycerides 157 mg/dL; Very Low Density Lipoprotein 31 mg/dL (5-40)
== END ==
PROVIDERS: Internal Medicine Cardiovascular Disease; Referring Provider Family Medicine; Visit Provider Family Medicine
DX: Z12.31 Encounter for screening mammogram for malignant neoplasm of breast (principal); E78.5 Hyperlipidemia, unspecified
CPT/HCPCS: 36415; 77063; 77067; 80061; 80076

== ENCOUNTER → 2018-07-06 08:10 | Outpatient (CLI) | payer MEDICARE, SELFPAY ==
[2018-03-16 10:16] VITALS: BMI 41.0
[2018-07-06 08:45] LABS: Color, Urine Yellow (Yellow); Glucose, Dipstick Normal (Normal); Ketone-Dipstick Negative (Negative); Leukocyte Esterase-Dipstick Negative /ul (Negative); Nitrite-Dipstick Negative (Negative); Occult Blood-Urine 25 /ul (Negative); Protein-Dipstick 15 mg/dl (Negative); Urine Bilirubin Dipstick Negative (Negative); Urine Clarity Sl. Cloudy (Clear); Urine Urobilinogen Normal (Normal); Urine pH 6.5 (5.0 - 8.0)
[2018-07-06 08:49] LABS: Absolute Lymphocyte Count 0.79 X10^3/ul (0.83-4.51); Absolute Neutrophil Count 2.7 X10^3/uL (2.0-7.7); Basophil# 0.02 X10^3/uL; Basophil% 0.5 % (0-1); Eosinophil# 0.08 X10^3/uL; Hematocrit 41.5 % (37-47); Hemoglobin 12.9 g/dl (12.0-15.0); Lymphocyte # 0.79 X10^3/ul (4.0); Lymphocyte % 19.7 % (19-41); Mean Corp Hgb Conc 31.1 g/gl (32-36); Mean Corpuscular Hgb 30.8 pg (27.0-32.0); Mean Platelet Vol. 10.7 fl (6.2-12.0); Neutrophil # 2.71 X10^3/uL (2.7-7.7); Neutrophil % 67.6 % (47-70); POSITIVE COUNT NO; POSITIVE DIFFERENTIAL NO; POSITIVE MORPHOLOGY NO; Platelet Count 135 K/mm3 (150-450); RBC Distribution Width CV 14.1 % (11.6-14.6); RBC Distribution Width SD 50.3 fl (35.1-43.9); Red Blood Count 4.19 M/mm3 (4.2-5.4)
[2018-07-06 09:11] LABS: AST(SGOT) 15 U/L (15-37); Alanine Aminotransfer ALT/SGPT 27 U/L (13-56); Albumin, Serum 3.6 g/dL (3.2-5.0); Alkaline Phosphatase 67 U/L (45-117); Anion Gap 6 (5-15); BUN 22 mg/dL (7-18); BUN/Creat Ratio 21.4 RATIO (10-20); Calcium,Total 8.6 mg/dL (8.5-10.1); Chloride 109 mmol/L (98-107); Cholesterol 122 mg/dL (200); Creatinine, Serum 1.03 mg/dL (0.55-1.02); EST Glomerular Filtration Rate 57 mL/min (>60); Est Glom Filt Rate - Afr Amer 69 mL/min (>60); Globulin 3.5 g/dL (2.2-4.2); Glucose 93 mg/dL (74-106); High Density Lipoprotein 32 mg/dL; Potassium 4.1 mmol/L (3.5-5.1); Protein, Total 7.1 g/dL (6.4-8.2); Sodium Level 142 mmol/L (136-145); Triglycerides 189 mg/dL; Very Low Density Lipoprotein 38 mg/dL (5-40)
[2018-07-06 09:17] LABS: Hemoglobin A1c 5.7 % (4.2-6.3)
== END ==
PROVIDERS: Referring Provider Family Medicine; Visit Provider Family Medicine
DX: Z00.00 Encounter for general adult medical examination without abnormal findings (principal); I10 Essential (primary) hypertension; E78.5 Hyperlipidemia, unspecified; E11.9 Type 2 diabetes mellitus without complications
CPT/HCPCS: 36415; 80053; 80061; 81002; 83036; 85025

== ENCOUNTER → 2018-12-31 | Outpatient (CLI) | payer MEDICARE, SELFPAY ==
[2018-09-24 09:50] VITALS: BMI 41.7
[2018-12-31 10:19] LABS: Absolute Lymphocyte Count 0.92 X10^3/uL (0.83-4.51); Absolute Neutrophil Count 2.9 X10^3/uL (2.0-7.7); Basophil# 0.03 X10^3/uL; Basophil% 0.7 % (0-1); Eosinophil# 0.07 X10^3/uL; Eosinophils% 1.6 % (0-5); Hematocrit 37.7 % (37-47); Hemoglobin 11.8 g/dL (12.0-15.0); Lymphocyte # 0.92 X10^3/ul (4.0); Lymphocyte % 21.1 % (19-41); Mean Corp Hgb Conc 31.3 g/dL (32-36); Mean Corpuscular Hgb 30.8 pg (27.0-32.0); Mean Corpuscular Volume 98.4 fL (81-99); Mean Platelet Vol. 10.4 fl (6.2-12.0); Monocyte# 0.45 X10^3/uL; Monocyte% 10.3 % (0-10); NRBC Flagged by Analyzer 0 % (0-5); Neutrophil # 2.87 X10^3/uL (2.7-7.7); Neutrophil % 66.1 % (47-70); Platelet Count 142 K/mm3 (150-450); RBC Distribution Width CV 14.4 % (11.6-14.6); RBC Distribution Width SD 51.8 fl (35.1-43.9); Red Blood Count 3.83 M/mm3 (4.2-5.4); White Blood Count 4.4 K/mm3 (4.4-11.0)
[2018-12-31 10:39] LABS: Hemoglobin A1c 5.4 % (4.2-6.3)
[2018-12-31 10:41] LABS: Cholesterol 120 mg/dL (200); High Density Lipoprotein 37 mg/dL; Thyroid Stim Hormone (TSH) 2.26 uIU/mL (0.358-3.74); Triglycerides 175 mg/dL; Very Low Density Lipoprotein 35 mg/dL (5-40)
== END | disposition home or self-care (01) ==
LOC: PAVLAB 09:39
PROVIDERS: Referring Provider Family Medicine; Visit Provider Family Medicine
DX: D50.9 Iron deficiency anemia, unspecified (principal); I10 Essential (primary) hypertension; E78.5 Hyperlipidemia, unspecified; E11.9 Type 2 diabetes mellitus without complications
CPT/HCPCS: 36415; 80061; 83036; 84443; 85025

== ENCOUNTER → 2019-04-04 08:07 | Outpatient (CLI) | payer MEDICARE, SELFPAY ==
[2018-09-24 09:50] VITALS: BMI 41.7
--- NOTE | 2019-04-04 08:10 | BI_ITS ---
MAMMOGRAPHY - BILATERAL SCREENING REASON FOR EXAM: Female, 69 years old. Routine annual screening examination. PERTINENT HISTORY: Mother with breast cancer. Patient has a history of endometrial carcinoma. TECHNIQUE: Digital bilateral breast apple (3D mammographic acquisition) in the CC and MLO projections. 2-D mediolateral oblique (MLO) and craniocaudad (CC) views of both breasts were obtained. CAD: Full Field Digital Mammography with Computer Added Detection was performed. COMPARISON: Comparison is made with prior examination of March 21, 2018 and January 30, 2017. FINDINGS: Breast Composition: The breasts are almost entirely fatty. There are no dominant masses or suspicious calcifications. Stable small bilateral axillary lymph nodes. No other significant abnormalities are identified. There has been no significant change since the prior study. BI/SCREEN MAMM (CAD) W/APPLE BILAT IMPRESSION: Stable bilateral screening mammogram. Yearly follow-up mammogram recommended. (A) ASSESSMENT CATEGORY: BIRADS Category 2: Benign. A letter regarding these results will be sent to the patient by the facility within 30 days. Approximately 10% of breast cancers are not detected by mammography. A normal mammogram should not delay biopsy of a clinically suspicious abnormality. [id number] Electronically Signed: Kostas Finney, at 10:30 EST , Service support ,
== END ==
PROVIDERS: Referring Provider Family Medicine; Visit Provider Family Medicine
DX: Z12.31 Encounter for screening mammogram for malignant neoplasm of breast (principal)
CPT/HCPCS: 77063; 77067

== ENCOUNTER → 2019-07-17 07:33 | Outpatient (CLI) | payer MEDICARE, SELFPAY ==
[2018-09-24 09:50] VITALS: BMI 41.7
[2019-07-17 08:23] LABS: Absolute Lymphocyte Count 0.86 X10^3/uL (0.83-4.51); Absolute Neutrophil Count 2.9 X10^3/uL (2.0-7.7); Basophil# 0.04 X10^3/uL; Basophil% 0.9 % (0-1); Eosinophil# 0.07 X10^3/uL; Eosinophils% 1.7 % (0-5); Hematocrit 41.3 % (37-47); Hemoglobin 12.6 g/dL (12.0-15.0); Lymphocyte # 0.86 X10^3/ul (4.0); Lymphocyte % 20.3 % (19-41); Mean Corp Hgb Conc 30.5 g/dL (32-36); Mean Corpuscular Hgb 30.1 pg (27.0-32.0); Mean Corpuscular Volume 98.6 fL (81-99); Mean Platelet Vol. 10.2 fl (6.2-12.0); Monocyte# 0.41 X10^3/uL; Monocyte% 9.7 % (0-10); NRBC Flagged by Analyzer 0 % (0-5); Neutrophil # 2.85 X10^3/uL (2.7-7.7); Neutrophil % 67.2 % (47-70); Platelet Count 131 K/mm3 (150-450); RBC Distribution Width CV 14.6 % (11.6-14.6); RBC Distribution Width SD 53.1 fl (35.1-43.9); Red Blood Count 4.19 M/mm3 (4.2-5.4); White Blood Count 4.2 K/mm3 (4.4-11.0)
[2019-07-17 08:25] LABS: Color, Urine Yellow (Yellow); Glucose, Dipstick Normal (Normal); Ketone-Dipstick Negative (Negative); Leukocyte Esterase-Dipstick 25 /ul (Negative); Nitrite-Dipstick Negative (Negative); Occult Blood-Urine Negative /ul (Negative); Protein-Dipstick Negative (Negative); Urine Bilirubin Dipstick Negative (Negative); Urine Clarity Clear (Clear); Urine Urobilinogen Normal (Normal)
[2019-07-17 08:48] LABS: Hemoglobin A1c 5.5 % (4.2-6.3)
[2019-07-17 09:01] LABS: ALB/GLOB Ratio 1.1 RATIO (0.9-2.4); AST(SGOT) 19 U/L (15-37); Alanine Aminotransfer ALT/SGPT 33 U/L (13-56); Albumin, Serum 3.7 g/dL (3.2-5.0); Alkaline Phosphatase 69 U/L (45-117); Anion Gap 5 (5-15); BUN 20 mg/dL (7-18); BUN/Creat Ratio 20.1 RATIO (10-20); Calcium,Total 9.1 mg/dL (8.5-10.1); Chloride 106 mmol/L (98-107); Cholesterol 127 mg/dL (200); EST Glomerular Filtration Rate 59 mL/min (>60); Est Glom Filt Rate - Afr Amer 71 mL/min (>60); Globulin 3.5 g/dL (2.2-4.2); Glucose 105 mg/dL (74-106); High Density Lipoprotein 34 mg/dL; Iron 45 ug/dL (50-170); Potassium 4.1 mmol/L (3.5-5.1); Protein, Total 7.2 g/dL (6.4-8.2); Sodium Level 141 mmol/L (136-145); Triglycerides 185 mg/dL; Very Low Density Lipoprotein 37 mg/dL (5-40)
== END ==
PROVIDERS: Referring Provider Family Medicine; Visit Provider Family Medicine
DX: Z00.00 Encounter for general adult medical examination without abnormal findings (principal); D50.9 Iron deficiency anemia, unspecified; I10 Essential (primary) hypertension; E78.5 Hyperlipidemia, unspecified; E11.9 Type 2 diabetes mellitus without complications
CPT/HCPCS: 36415; 80053; 80061; 81002; 83036; 83540; 85025

== ENCOUNTER → 2020-01-09 | Outpatient (CLI) | payer MEDICARE, SELFPAY ==
[2019-09-23 11:00] VITALS: BMI 40.0
[2020-01-09 10:36] LABS: Absolute Lymphocyte Count 0.91 X10^3/uL (0.83-4.51); Absolute Neutrophil Count 2.2 X10^3/uL (2.0-7.7); Basophil# 0.03 X10^3/uL; Basophil% 0.8 % (0-1); Eosinophil# 0.13 X10^3/uL; Eosinophils% 3.5 % (0-5); Hematocrit 39.9 % (37-47); Hemoglobin 12.3 g/dL (12.0-15.0); Lymphocyte # 0.91 X10^3/ul (4.0); Lymphocyte % 24.3 % (19-41); Mean Corp Hgb Conc 30.8 g/dL (32-36); Mean Corpuscular Hgb 30.4 pg (27.0-32.0); Mean Corpuscular Volume 98.8 fL (81-99); Mean Platelet Vol. 10.8 fl (6.2-12.0); Monocyte# 0.48 X10^3/uL; Monocyte% 12.8 % (0-10); NRBC Flagged by Analyzer 0 % (0-5); Neutrophil # 2.19 X10^3/uL (2.7-7.7); Neutrophil % 58.3 % (47-70); Platelet Count 130 K/mm3 (150-450); RBC Distribution Width CV 14.3 % (11.6-14.6); RBC Distribution Width SD 51.9 fl (35.1-43.9); Red Blood Count 4.04 M/mm3 (4.2-5.4); White Blood Count 3.8 K/mm3 (4.4-11.0)
[2020-01-09 10:57] LABS: Hemoglobin A1c 5.8 % (3.8-5.6)
[2020-01-09 11:03] LABS: AST(SGOT) 14 U/L (15-37); Alanine Aminotransfer ALT/SGPT 35 U/L (13-56); Albumin, Serum 3.7 g/dL (3.2-5.0); Alkaline Phosphatase 66 U/L (45-117); Cholesterol 126 mg/dL (200); Globulin 3.3 g/dL (2.2-4.2); High Density Lipoprotein 33 mg/dL; Iron 66 ug/dL (50-170); Triglycerides 168 mg/dL; Very Low Density Lipoprotein 34 mg/dL (5-40)
== END | disposition home or self-care (01) ==
LOC: LAB 09:39
PROVIDERS: Referring Provider Family Medicine; Visit Provider Family Medicine
DX: E78.5 Hyperlipidemia, unspecified (principal); D50.9 Iron deficiency anemia, unspecified; E11.9 Type 2 diabetes mellitus without complications
CPT/HCPCS: 36415; 80061; 80076; 83036; 83540; 85025

== ENCOUNTER → 2020-04-06 10:43 | Outpatient (CLI) | payer MEDICARE, SELFPAY ==
[2019-09-23 11:00] VITALS: BMI 40.0
--- NOTE | 2020-04-06 10:46 | BI_ITS ---
MAMMOGRAPHY - BILATERAL SCREENING REASON FOR EXAM: Female, 70 years old. Routine annual screening examination. PERTINENT HISTORY: Mother had breast cancer at age 72 TECHNIQUE: Digital bilateral breast apple (3D mammographic acquisition) in the CC and MLO projections. 2-D mediolateral oblique (MLO) and craniocaudad (CC) views of both breasts were obtained. CAD: Full Field Digital Mammography with Computer Added Detection was performed. COMPARISON: Previous mammogram obtained on 04/04/2019 FINDINGS: Breast Composition: Fatty There are no dominant masses or suspicious calcifications. No other significant abnormalities are identified. BI/SCREEN MAMM (CAD) W/APPLE BILAT IMPRESSION: Stable bilateral screening mammogram. Yearly follow-up mammogram recommended. (A) ASSESSMENT CATEGORY: BIRADS Category 1: Negative. A letter regarding these results will be sent to the patient by the facility within 30 days. Approximately 10% of breast cancers are not detected by mammography. A normal mammogram should not delay biopsy of a clinically suspicious abnormality. [id number] Electronically Signed: Eliud Lerner, at 13:13 EST Tel , Service support ,
== END ==
PROVIDERS: Referring Provider Family Medicine; Visit Provider Family Medicine
DX: Z12.31 Encounter for screening mammogram for malignant neoplasm of breast (principal)
CPT/HCPCS: 77063; 77067

== ENCOUNTER → 2020-08-13 07:44 | Outpatient (CLI) | payer MEDICARE, SELFPAY ==
[2019-09-23 11:00] VITALS: BMI 40.0
[2020-08-13 08:29] LABS: Hemoglobin A1c 5.5 % (3.8-5.6)
[2020-08-13 08:32] LABS: ALB/GLOB Ratio 1.1 RATIO (0.9-2.4); AST(SGOT) 20 U/L (15-37); Alanine Aminotransfer ALT/SGPT 37 U/L (13-56); Albumin, Serum 3.7 g/dL (3.2-5.0); Alkaline Phosphatase 56 U/L (45-117); Anion Gap 4 (5-15); BUN 19 mg/dL (7-18); Calcium,Total 9.1 mg/dL (8.5-10.1); Chloride 107 mmol/L (98-107); Cholesterol 135 mg/dL (200); EST Glomerular Filtration Rate 58 mL/min (>60); Est Glom Filt Rate - Afr Amer 70 mL/min (>60); Globulin 3.5 g/dL (2.2-4.2); Glucose 105 mg/dL (74-106); High Density Lipoprotein 36 mg/dL; Iron 62 ug/dL (50-170); Protein, Total 7.2 g/dL (6.4-8.2); Sodium Level 139 mmol/L (136-145); Triglycerides 228 mg/dL; Very Low Density Lipoprotein 46 mg/dL (5-40)
== END ==
PROVIDERS: Referring Provider Family Medicine; Visit Provider Family Medicine
DX: Z00.00 Encounter for general adult medical examination without abnormal findings (principal); I10 Essential (primary) hypertension; E78.5 Hyperlipidemia, unspecified; E11.9 Type 2 diabetes mellitus without complications; D50.9 Iron deficiency anemia, unspecified
CPT/HCPCS: 36415; 80053; 80061; 83036; 83540

== ENCOUNTER → 2021-01-25 08:24 | Outpatient (CLI) | payer MEDICARE, SELFPAY ==
[2021-01-25 09:27] LABS: Absolute Lymphocyte Count 0.98 X10^3/uL (0.83-4.51); Absolute Neutrophil Count 2.2 X10^3/uL (2.0-7.7); Basophil# 0.03 X10^3/uL; Basophil% 0.8 % (0-1); Eosinophil# 0.07 X10^3/uL; Eosinophils% 1.9 % (0-5); Hematocrit 40.8 % (37-47); Hemoglobin 12.8 g/dL (12.0-15.0); Lymphocyte # 0.98 X10^3/ul (0.83-4.51); Lymphocyte % 26.8 % (19-41); Mean Corp Hgb Conc 31.4 g/dL (32-36); Mean Platelet Vol. 9.8 fl (6.2-12.0); NRBC Flagged by Analyzer 0 % (0-5); Neutrophil # 2.16 X10^3/uL (2.7-7.7); Neutrophil % 59.2 % (47-70); Platelet Count 134 K/mm3 (150-450); RBC Distribution Width CV 14.1 % (11.6-14.6); RBC Distribution Width SD 53.2 fl (35.1-43.9); White Blood Count 3.7 K/mm3 (4.4-11.0)
[2021-01-25 09:41] LABS: Hemoglobin A1c 5.6 % (3.8-5.6)
[2021-01-25 10:07] LABS: AST(SGOT) 20 U/L (15-37); Alanine Aminotransfer ALT/SGPT 44 U/L (13-56); Albumin, Serum 3.5 g/dL (3.2-5.0); Alkaline Phosphatase 57 U/L (45-117); Anion Gap 4 (5-15); BUN 21 mg/dL (7-18); BUN/Creat Ratio 22.5 RATIO (10-20); Calcium,Total 8.8 mg/dL (8.5-10.1); Chloride 109 mmol/L (98-107); Cholesterol 127 mg/dL (200); Creatinine, Serum 0.94 mg/dL (0.55-1.02); EST Glomerular Filtration Rate 63 mL/min (>60); Est Glom Filt Rate - Afr Amer 76 mL/min (>60); Globulin 3.5 g/dL (2.2-4.2); Glucose 103 mg/dL (74-106); High Density Lipoprotein 33 mg/dL; Iron 71 ug/dL (50-170); Potassium 3.7 mmol/L (3.5-5.1); Sodium Level 142 mmol/L (136-145); Triglycerides 194 mg/dL; Very Low Density Lipoprotein 39 mg/dL (5-40)
== END ==
PROVIDERS: Visit Provider Family Medicine
DX: D50.9 Iron deficiency anemia, unspecified (principal); E11.9 Type 2 diabetes mellitus without complications; E78.5 Hyperlipidemia, unspecified; I10 Essential (primary) hypertension
CPT/HCPCS: 36415; 80053; 80061; 83036; 83540; 85025

== ENCOUNTER → 2021-04-07 10:08 | Outpatient (CLI) | payer MEDICARE, SELFPAY ==
--- NOTE | 2021-04-07 10:13 | BI_ITS ---
MAMMOGRAPHY - BILATERAL SCREENING 3-D TOMOSYNTHESIS REASON FOR EXAM: Female, 71 years old. Routine screening PERTINENT HISTORY: Mother with breast cancer.. TECHNIQUE: 2-D mammograms and 3-D Tomosynthesis of the breast (s) were performed. CAD was performed. COMPARISON: 04/06/2020 FINDINGS: The breast composition is almost entirely fat. Scattered benign calcifications are seen. No dense spiculated masses or suspicious microcalcifications are identified. No architectural distortion is identified. There is no skin thickening or retraction. There has been no significant change since the prior study. BI/SCRN MAMM (CAD)W/APPLE BILAT IMPRESSION: No mammographic signs of malignancy. Routine yearly mammograms recommended. ASSESSMENT CATEGORY: BIRADS Category 1: Negative. A letter regarding these results will be sent to the patient by the facility within 30 days. FOLLOW UP RECOMMENDATION: Yearly follow up mammogram recommended. (A) Approximately 10% of breast cancers are not detected by mammography. A normal mammogram should not delay biopsy of a clinically suspicious abnormality. Electronically Signed: Mayank Ragland MD at 11:55 EST , Service support ,
== END ==
PROVIDERS: Visit Provider Family Medicine
DX: Z12.31 Encounter for screening mammogram for malignant neoplasm of breast (principal)
CPT/HCPCS: 77063; 77067

== ENCOUNTER 2021-07-21 09:42 | Outpatient (CLI) | payer MEDICARE, SELFPAY ==
[2021-07-21 10:21] LABS: Absolute Neutrophil Count 2.9 X10^3/uL (2.0-7.7); Basophil# 0.03 X10^3/uL; Basophil% 0.7 % (0-1); Eosinophil# 0.06 X10^3/uL; Eosinophils% 1.4 % (0-5); Hematocrit 42.4 % (37-47); Hemoglobin 13.8 g/dL (12.0-15.0); Mean Corp Hgb Conc 32.5 g/dL (32-36); Mean Corpuscular Hgb 32.4 pg (27.0-32.0); Mean Corpuscular Volume 99.5 fL (81-99); Mean Platelet Vol. 9.7 fl (6.2-12.0); Monocyte# 0.43 X10^3/uL; NRBC Flagged by Analyzer 0 % (0-5); Neutrophil # 2.85 X10^3/uL (2.7-7.7); Neutrophil % 66.7 % (47-70); Platelet Count 143 K/mm3 (150-450); RBC Distribution Width SD 51.2 fl (35.1-43.9); Red Blood Count 4.26 M/mm3 (4.2-5.4); White Blood Count 4.3 K/mm3 (4.4-11.0)
[2021-07-21 10:40] LABS: Hemoglobin A1c 5.6 % (3.8-5.6)
[2021-07-21 10:52] LABS: ALB/GLOB Ratio 1.2 RATIO (0.9-2.4); AST(SGOT) 21 U/L (15-37); Alanine Aminotransfer ALT/SGPT 41 U/L (13-56); Alkaline Phosphatase 56 U/L (45-117); Anion Gap 6 (5-15); BUN 20 mg/dL (7-18); BUN/Creat Ratio 19.4 RATIO (10-20); Chloride 107 mmol/L (98-107); Cholesterol 141 mg/dL (200); Creatinine, Serum 1.03 mg/dL (0.55-1.02); EST Glomerular Filtration Rate 56 mL/min (>60); Est Glom Filt Rate - Afr Amer 68 mL/min (>60); Globulin 3.4 g/dL (2.2-4.2); Glucose 111 mg/dL (74-106); High Density Lipoprotein 39 mg/dL; Iron 58 ug/dL (50-170); Potassium 4.8 mmol/L (3.5-5.1); Protein, Total 7.4 g/dL (6.4-8.2); Sodium Level 142 mmol/L (136-145); Triglycerides 166 mg/dL; Very Low Density Lipoprotein 33 mg/dL (5-40)
== END 2021-07-21 23:59 | disposition home or self-care (01) ==
LOC: LAB 09:46
PROVIDERS: Visit Provider Family Medicine
DX: Z00.00 Encounter for general adult medical examination without abnormal findings (principal); E11.9 Type 2 diabetes mellitus without complications; I10 Essential (primary) hypertension; E78.5 Hyperlipidemia, unspecified; D50.9 Iron deficiency anemia, unspecified
CPT/HCPCS: 36415; 80053; 80061; 83036; 83540; 85025